=== PATIENT | male | born 1960 | race Caucasian/White ===

== ENCOUNTER 2025-01-29 19:32 | Emergency (ER) | payer MEDICARE ==
[2025-01-29 20:03] VITALS: RESP 18
--- NOTE | 2025-01-29 20:47 | XR ---
EXAMINATION TYPE: XR forearm RT DATE OF EXAM: 01/29/2025 8:41 PM COMPARISON: None. CLINICAL INDICATION: Male, 64 years old with history of previous fracture/cast removal, pain TECHNIQUE: XR forearm RT XX views were obtained. FINDINGS: Overlying cast material does obscure fine bony detail. 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 Callus formation is noted. No additional fractures certainty at this time. IMPRESSION: As above [facility], , 01/29/2025 8:44 PM
[2025-01-29] MEDS: PETROLATUM, WHITE OINT 50 GM TUBE TOPICAL PRN (23:02)
--- NOTE | 2025-01-29 23:20 | ED ---
Upper Extremity HPI - General Chief Complaint: Extremity Injury, Upper Stated Complaint: cast removal Time Seen by Provider: 01/29/25 21:00 Source: patient Mode of arrival: ambulatory Limitations: no limitations - History of Present Illness Initial Comments: 64-year-old male requesting that his right arm cast be removed. Patient just moved from [place]. He had his cast applied there and was told once he got to [place] he should have the cast removed at the beginning of December. He reports that things are a bit busier than he anticipated and he has not had a chance to have it removed yet. He does have an appointment with [facility] on [facility]. He is having swelling in his hand. No numbness or pallor. He still able to move all of his fingers with ease. - Related Data Allergies Allergy/AdvReac Type Severity Reaction Status Date / Time No Known Allergies Allergy Verified 01/29/25 19:58 Review of Systems ROS Statement: Those systems with pertinent positive or pertinent negative responses have been documented in the HPI. ROS Other: All systems not noted in ROS Statement are negative. Past Medical History Past Medical History: Atrial Fibrillation, Heart Failure, CVA/TIA, Diabetes Mellitus, Hypertension Past Surgical History: No Surgical Hx Reported Smoking Status: Never smoker Past Alcohol Use History: Occasional Past Drug Use History: None Reported General Exam Limitations: no limitations General appearance: alert, in no apparent distress Head exam: Present: atraumatic, normocephalic, normal inspection Eye exam: Present: normal appearance, EOMI Neck exam: Present: normal inspection. Absent: meningismus Respiratory exam: Absent: respiratory distress Right Forearm Wrist exam: Present: swelling. Absent: tenderness Vascular: Present: normal capillary refill. Absent: vascular compromise Neurological exam: Present: alert, oriented X3 Psychiatric exam: Present: normal affect, normal mood Skin exam: Present: warm, dry Course Vital Signs 01/29/25 19:59 Temperature 97.2 F L Pulse Rate 58 L Respiratory 18 Rate Blood Pressure 116/89 O2 Sat by Pulse 97 Oximetry Medical Decision Making - Medical Decision Making Was pt. sent in by a medical professional or institution (, PA, CINDER CRANE OPERATOR, urgent care, hospital, or [facility]...) When possible be specific @ -No Did you speak to anyone other than the patient for history (EMS, parent, family, police, friend...)? What history was obtained from this source @ -Spoke with the patient's sister on the phone Did you review nursing and triage notes (agree or disagree)? Why? @ -I reviewed and agree with nursing and triage notes Were old charts reviewed (outside hosp., previous admission, EMS record, old EKG, old radiological studies, urgent care reports/EKG's, [facility] records)? Report findings @ -No old charts were reviewed Differential Diagnosis (chest pain, altered mental status, abdominal pain women, abdominal pain men, vaginal bleeding, weakness, fever, dyspnea, syncope, headache, dizziness, GI bleed, back pain, seizure, CVA, palpatations, mental health, musculoskeletal)? @ -Differential includes encounter for cast removal, new fracture, infection, compartment syndrome, not an all-inclusive list EKG interpreted by me (3pts min.). @ -As above X-rays interpreted by me (1pt min.). @ -X-ray shows overlying cast material does obscure fine bony detail. 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 Callus formation is noted. No additional fractures seen at this time CT interpreted by me (1pt min.). @ -None done U/S interpreted by me (1pt. min.). @ -None done What testing was considered but not performed or refused? (CT, X-rays, U/S, labs)? Why? @ -None What meds were considered but not given or refused? Why? @ -None Did you discuss the management of the patient with other professionals (professionals i.e. , PA, CINDER CRANE OPERATOR, lab, RT, psych nurse, psych social worker, mfg assoc, teacher, nuclear officer, cyanide case hardener)? Give summary @ -No Was smoking cessation discussed for >3mins.? @ -No Was critical care preformed (if so, how long)? @ -No Were there social determinants of health that impacted care today? How? (Homelessness, low income, unemployed, alcoholism, drug addiction, transportation, low edu. Level, literacy, decrease access to med. care, longterm, rehab)? @ -No Was there de-escalation of care discussed even if they declined (Discuss DNR or withdrawal of care, Hospice)? DNR status @ -No What co-morbidities impacted this encounter? (DM, HTN, Smoking, COPD, CAD, Cancer, CVA, ARF, Chemo, Hep., AIDS, mental health diagnosis, sleep apnea, morbid obesity)? @ -None Was patient admitted / discharged? Hospital course, mention meds given and route, prescriptions, significant lab abnormalities, going to OR and other pertinent info. @ -64-year-old male requesting removal of his right arm cast. He had a distal humerus fracture back [place] He was told to have the cast removed when he got to [place] at the beginning of December. He states that he was busy with moving and has not had a chance to have it removed yet. He is having swelling of the hand. No pallor or numbness. Pulses are palpable and normal capillary refill. I spoke with the patient's sister via telephone who confirms that the patient was supposed to have his cast removed a few weeks ago. Cast is removed, patient is placed in Srinath wrap for his swelling. Provided with a sling. He has an appointment with orthopedics on Sunday. Follow-up with PCP. Report back to ER with any new or worsening symptoms. Discussed return parameters and answered all questions. Patient conveyed verbal understanding and agreed to the plan. I discussed this case in detail with my attending Dr. Bryant Undiagnosed new problem with uncertain prognosis? @ -No Drug Therapy requiring intensive monitoring for toxicity (Heparin, Nitro, Insulin, Cardizem)? @ -No Were any procedures done? @ -No Diagnosis/symptom? @ -Encounter for cast removal Acute, or Chronic, or Acute on Chronic? @ -Acute Uncomplicated (without systemic symptoms) or Complicated (systemic symptoms)? @ -Uncomplicated Side effects of treatment? @ -No Exacerbation, Progression, or Severe Exacerbation? @ -No Poses a threat to life or bodily function? How? (Chest pain, [place], [place], pneumonia, PE, COPD, DKA, ARF, appy, cholecystitis, CVA, Diverticulitis, Homicidal, Suicidal, threat to staff... and all critical care pts) @ -No Disposition Clinical Impression: Cast removal Disposition: HOME SELF-CARE Condition: Good Additional Instructions: Follow-up with orthopedics at your scheduled appointment. Report back to ER with any new or worsening symptoms. Wrap the arm and elevate the arm to help with swelling. Is patient prescribed a controlled substance at d/c from ED?: No Referrals: None,Stated [Primary Care Provider] - 1-2 days Time of Disposition: 23:20
[2025-01-29 23:23] VITALS: BP 117/79; PULSE 62; TEMP 97.6
== END 2025-01-29 23:45 | disposition home or self-care (01) ==
LOC: EC 19:32
DX: Z47.89 Encounter for other orthopedic aftercare (principal)
CPT/HCPCS: 99283

== ENCOUNTER 2025-03-09 14:09 | Inpatient (IN) | payer MEDICARE ==
[2025-03-09 15:24] LABS: Basophils % (A) 1.6 %; Eosinophils # (A) 0.79 10*3/uL (0.04-0.35); Eosinophils % (A) 12.4 %; HGB 10.4 g/dL (13.0-17.0); Lymphocytes # (A) 0.72 10*3/uL (0.90-5.00); Lymphocytes % (A) 11.3 %; MCH 25.8 pg (27.0-32.0); MCHC 31.5 g/dL (32.0-37.0); MCV 81.9 fL (80.0-97.0); Mean Platelet Volume 9.9 fL (9.5-12.2); Monocytes % (A) 12.6 %; Neutrophils # (A) 3.95 10*3/uL (1.80-7.70); Neutrophils % (A) 61.9 %; Platelet Count 305 10*3/uL (140-440); RBC 4.03 10*6/uL (4.40-5.60); RDW 20.2 % (11.5-14.5); WBC 6.37 10*3/uL (4.50-10.00)
[2025-03-09 15:38] LABS: Partial Thromboplastin Time 28.4 sec (22.0-30.0); Prothrombin Time 20.7 sec (10.0-12.5)
[2025-03-09 15:45] LABS: ALT 16 U/L (4-49); AST 27 U/L (17-59); African American GFR (CKD) 50 (>60 ml/min/1.73 sqM); Albumin 3.8 g/dL (3.5-5.0); Alkaline Phosphatase 68 U/L (38-126); Anion Gap 13 mmol/L; Blood Urea Nitrogen 65 mg/dL (9-20); Calcium 9.5 mg/dL (8.4-10.2); Carbon Dioxide 22 mmol/L (22-30); Chloride 104 mmol/L (98-107); Glucose 121 mg/dL (74-99); Magnesium 1.8 mg/dL (1.6-2.3); Non-African American GFR(CKD) 44 (>60 ml/min/1.73 sqM); Potassium 3.6 mmol/L (3.5-5.1); Sodium 139 mmol/L (137-145); Total Bilirubin 1.2 mg/dL (0.2-1.3); Total Protein 6.3 g/dL (6.3-8.2)
--- NOTE | 2025-03-09 15:49 | XR ---
EXAMINATION TYPE: XR chest 2V DATE OF EXAM: 03/09/2025 3:45 PM COMPARISON: None TECHNIQUE: XR chest 2V Frontal and lateral views of the chest. CLINICAL INDICATION:Male, 64 years old with history of difficulty breathing; FINDINGS: Lungs/Pleura: There is no evidence of pleural effusion, focal consolidation, or pneumothorax. Pulmonary vascularity: Mild pulmonary vascular congestion. Heart/mediastinum: Cardiomediastinal silhouette is enlarged. Musculoskeletal: Multiple level degenerative disc disease changes seen throughout the spine. IMPRESSION: Cardiomegaly and mild pulmonary vascular congestion. Correlate with BNP for congestive heart failure. [facility], , 03/09/2025 3:47 PM
[2025-03-09 15:53] LABS: NT-Pro-B-Type Natriuretic Pept 23900 pg/mL
[2025-03-09 16:32] LABS: Appearance,Urine Clear (Clear); Bilirubin,Urine Negative (Negative); Blood,Urine Negative (Negative); Color,Urine Colorless; Glucose,Urine (UA) Negative (Negative); Ketones,Urine Negative (Negative); Leukocyte Esterase,Urine Negative (Negative); Nitrite,Urine Negative (Negative); PH, Urine 7.5 (5.0-8.0); Protein,Urine Negative (Negative); Specific Gravity,Urine 1.008 (1.001-1.035); Urobilinogen,Urine <2.0 mg/dL (<2.0)
--- NOTE | 2025-03-09 17:14 | US ---
EXAMINATION TYPE: US scrotum with doppler. DATE OF EXAM: 03/09/2025 COMPARISON: NONE CLINICAL INDICATION: Male, 64 years old with history of scrotal edema; scrotal edema x 2 weeks TECHNIQUE: Grayscale, color Doppler and spectral Doppler imaging of the scrotum. FINDINGS: EXAM MEASUREMENTS: TESTICLES: Right Testicle: 4.4 x 2.8 x 2.9 cm Left Testicle: 4.4 x 2.9 x 3.0 cm EPIDIDYMIS HEAD: Right Epididymis: 0.6 cm Left Epididymis: 0.8 cm Doppler performed to assess for testicular vascularity; good bilateral color flow and spectral wavefo kanu are seen. There is no evidence of testicular torsion. Presence of hydroceles: yes bilaterally Presence of varicoceles: yes on left Bilateral scrotal edema noted IMPRESSION: 1. No suspicious changes to suggest torsion 2. Bilateral hydroceles are present 3. Scrotal edema present [facility], , 03/09/2025 5:12 PM
[2025-03-09 17:35] LABS: Glucose,Whole Blood 164 mg/dL (70-110)
[2025-03-09] MEDS ORDERED: ONDANSETRON 4 MG/2 ML VIAL IVP PRN (17:56)
[2025-03-09] MEDS ORDERED: NALOXONE 0.4 MG/ML 1 ML VIAL IV PRN (17:56)
--- NOTE | 2025-03-09 17:58 | ED ---
General Adult HPI - General Chief complaint: Urogenital Stated complaint: Urogenital Time Seen by Provider: 03/09/25 14:22 Source: patient, RN notes reviewed, old records reviewed Mode of arrival: ambulatory Limitations: no limitations - History of Present Illness Initial comments: 64-year-old male presents emergency department complaining of scrotal swelling. Has been present for the last 1 to 2 weeks. Over that period time is also noticed worsening lower extremity swelling as well as exertional shortness of breath. Denies any worsening orthopnea or PND. Denies any abdominal pain, nausea, vomiting, diarrhea. Has a history of CHF, A-fib on blood thinners as well as Lasix. Presents for further evaluation at this time. - Related Data Allergies Allergy/AdvReac Type Severity Reaction Status Date / Time No Known Allergies Allergy Verified 03/09/25 14:15 Review of Systems ROS Statement: Those systems with pertinent positive or pertinent negative responses have been documented in the HPI. Review of Systems: CONST: Denies fever EYES: Denies blurry vision ENT: Denies nasal congestion C/V: Denies Chest pain RESP: Endorses exertional shortness of breath GI: Denies abdominal pain : Endorses scrotal edema SKIN: Denies rash. MSK: Denies joint pain. NEURO: Denies headache ROS Other: All systems not noted in ROS Statement are negative. Past Medical History Past Medical History: Atrial Fibrillation, Heart Failure, CVA/TIA, Diabetes Mellitus, Hypertension Past Surgical History: No Surgical Hx Reported Smoking Status: Never smoker Past Alcohol Use History: Occasional Past Drug Use History: None Reported General Exam - General Exam Comments Initial Comments: General: Appears in no acute distress. HEAD: Normal with no signs of head trauma. EYES: PERRLA, EOMI, conjunctiva normal, no discharge. ENT: Hearing grossly intact, normal oropharynx. RESPIRATORY: Clear breath sounds bilaterally. No wheezes, rales, or rhonchi. C/V: Irregular rate and rhythm. S1 and S2 auscultated, bilateral lower extremity pitting edema, peripheral pulses 2+ and intact throughout ABD: Abd is soft, nontender, nondistended. Scrotal exam shows significant bilateral scrotal edema, left seems worse than right. EXT: Normal range of motion, no obvious deformity SKIN: No rashes or lesions observed on exposed skin. NEURO: Alert and oriented x 4. Limitations: no limitations Course Vital Signs 03/09/25 03/09/25 14:13 17:39 Temperature 97.4 F L 97.5 F L Pulse Rate 63 64 Respiratory 18 20 Rate Blood Pressure 117/74 109/61 O2 Sat by Pulse 96 94 L Oximetry Medical Decision Making - Medical Decision Making Was pt. sent in by a medical professional or institution (, ANABELL, CHIEF HUMAN RESOURCES OFFICER, urgent care, hospital, or [place] [facility]...) When possible be specific @ -No Did you speak to anyone other than the patient for history (EMS, parent, family, police, friend...)? What history was obtained from this source @ -No Did you review nursing and triage notes (agree or disagree)? Why? @ -I reviewed and agree with nursing and triage notes Were old charts reviewed (outside hosp., previous admission, EMS record, old EKG, old radiological studies, urgent care reports/EKG's, [place] [facility] records)? Report findings @ -No old charts were reviewed Differential Diagnosis (chest pain, altered mental status, abdominal pain women, abdominal pain men, vaginal bleeding, weakness, fever, dyspnea, syncope, headache, dizziness, GI bleed, back pain, seizure, CVA, palpatations, mental health, musculoskeletal)? @ -CHF, hydrocele, varicocele. This list is not all-inclusive. EKG interpreted by me (3pts min.). @ -As above X-rays interpreted by me (1pt min.). @ -Chest x-ray shows pulmonary vascular congestion CT interpreted by me (1pt min.). @ -None done U/S interpreted by me (1pt. min.). @ -Scrotal ultrasound reveals bilateral hydrocele as well as just general scrotal edema. No evidence of torsion. What testing was considered but not performed or refused? (CT, X-rays, U/S, labs)? Why? @ -None What meds were considered but not given or refused? Why? @ -None Did you discuss the management of the patient with other professionals (professionals i.e. ANABELL Ludwig, CHIEF HUMAN RESOURCES OFFICER, lab, RT, psych nurse, social media project manager, riprap placer, teacher, airfield services officer, lining caser)? Give summary @ -Discussed with the admitting team, TIMOTHY Harden of [facility] who accepted the admission Was smoking cessation discussed for >3mins.? @ -No Was critical care preformed (if so, how long)? @ -No Were there social determinants of health that impacted care today? How? (Homelessness, low income, unemployed, alcoholism, drug addiction, transportation, low edu. Level, literacy, decrease access to med. care, [facility], rehab)? @ -No Was there de-escalation of care discussed even if they declined (Discuss DNR or withdrawal of care, Hospice)? DNR status @ -No What co-morbidities impacted this encounter? (DM, HTN, Smoking, COPD, CAD, Cancer, CVA, ARF, Chemo, Hep., AIDS, mental health diagnosis, sleep apnea, morbid obesity)? @ -CHF Was patient admitted / discharged? Hospital course, mention meds given and route, prescriptions, significant lab abnormalities, going to OR and other pertinent info. @ -Based on patient's presentation physical exam, presents with lower extremity pitting edema, suspected bilateral hydroceles with worsening scrotal edema, as well as other clinical symptoms of CHF including exertional dyspnea. I suspect a CHF exacerbation. We will obtain workup. Patient was in agreement this plan. Vitals are within acceptable limits. He does have a history of A-fib and is on blood thinners. EKG shows no signs of acute ischemia. Chest x-ray shows pulmonary vascular congestion. Laboratory studies are remarkable for an elevated BUN and cr eatinine with a history of CKD. BNP is elevated to 23,000. Ultrasound of the scrotum reveals bilateral hydroceles as well as scrotal edema. I discussed results with patient. He will be admitted to the hospital for CHF exacerbation and placed on IV Lasix. He was in agreement this plan. Cardiology consulted. I spoke with the admitting provider, TIMOTHY Harden of [facility] who accepted the admission. Undiagnosed new problem with uncertain prognosis? @ -No Drug Therapy requiring intensive monitoring for toxicity (Heparin, Nitro, Insulin, Cardizem)? @ -No Were any procedures done? @ -No Diagnosis/symptom? @ -CHF exacerbation, bilateral hydroceles Acute, or Chronic, or Acute on Chronic? @ -Acute on chronic Uncomplicated (without systemic symptoms) or Complicated (systemic symptoms)? @ -Complicated Side effects of treatment? @ -No Exacerbation, Progression, or Severe Exacerbation? @ -Exacerbation Poses a threat to life or bodily function? How? (Chest pain, [place], [place], pneumonia, PE, COPD, DKA, ARF, appy, cholecystitis, CVA, Diverticulitis, Homicidal, Suicidal, threat to staff... and all critical care pts) @ -Potentially, yes - Lab Data Result diagrams: 03/09/25 15:21 03/09/25 15:21 Lab Results 03/09/25 03/09/25 03/09/25 Range/Units 15:21 15:21 15:21 WBC 6.37 (4.50-10.00) 10*3/uL RBC 4.03 L (4.40-5.60) 10*6/uL Hgb 10.4 L (13.0-17.0) g/dL Hct 33.0 L (39.6-50.0) % MCV 81.9 (80.0-97.0) fL MCH 25.8 L (27.0-32.0) pg MCHC 31.5 L (32.0-37.0) g/dL Plt Count 305 (140-440) 10*3/uL MPV 9.9 (9.5-12.2) fL Immature Gran % (Auto) 0.2 % Neutrophils % 61.9 % Lymphocytes % 11.3 % Monocytes % 12.6 % Eosinophils % 12.4 % Basophils % 1.6 % Immature Gran # 0.01 (0.00-0.04) 10*3/uL Neutrophils # 3.95 (1.80-7.70) 10*3/uL Lymphocytes # 0.72 L (0.90-5.00) 10*3/uL Monocytes # 0.80 (0.20-1.00) 10*3/uL Eosinophils # 0.79 H (0.04-0.35) 10*3/uL Basophils # 0.10 (0.00-0.10) 10*3/uL PT 20.7 H (10.0-12.5) sec INR 2.0 H (<1.2) APTT 28.4 (22.0-30.0) sec Sodium 139 (137-145) mmol/L Potassium 3.6 (3.5-5.1) mmol/L Chloride 104 (98-107) mmol/L Carbon Dioxide 22 (22-30) mmol/L Anion Gap 13 mmol/L BUN 65 H (9-20) mg/dL Creatinine 1.62 H (0.66-1.25) mg/dL Est GFR (CKD-EPI)AfAm 50 (>60 ml/min/1.73 sqM) Est GFR (CKD-EPI)NonAf 44 (>60 ml/min/1.73 sqM) Glucose 121 H (74-99) mg/dL POC Glucose (mg/dL) (70-110) mg/dL POC Glu Cafe Operator ID Calcium 9.5 (8.4-10.2) mg/dL Magnesium 1.8 (1.6-2.3) mg/dL Total Bilirubin 1.2 (0.2-1.3) mg/dL AST 27 (17-59) U/L ALT 16 (4-49) U/L Alkaline Phosphatase 68 (38-126) U/L NT-Pro-B Natriuret Pep 44804 pg/mL Total Protein 6.3 (6.3-8.2) g/dL Albumin 3.8 (3.5-5.0) g/dL Urine Color Urine Appearance (Clear) Urine pH (5.0-8.0) Ur Specific [place] (1.001-1.035) Urine Protein (Negative) Urine Glucose (UA) (Negative) Urine Ketones (Negative) Urine Blood (Negative) Urine Nitrite (Negative) Urine Bilirubin (Negative) Urine Urobilinogen (<2.0) mg/dL Ur Leukocyte Esterase (Negative) 03/09/25 03/09/25 Range/Units 16:20 17:34 WBC (4.50-10.00) 10*3/uL RBC (4.40-5.60) 10*6/uL Hgb (13.0-17.0) g/dL Hct (39.6-50.0) % MCV (80.0-97.0) fL MCH (27.0-32.0) pg MCHC (32.0-37.0) g/dL Plt Count (140-440) 10*3/uL MPV (9.5-12.2) fL Immature Gran % (Auto) % Neutrophils % % Lymphocytes % % Monocytes % % Eosinophils % % Basophils % % Immature Gran # (0.00-0.04) 10*3/uL Neutrophils # (1.80-7.70) 10*3/uL Lymphocytes # (0.90-5.00) 10*3/uL Monocytes # (0.20-1.00) 10*3/uL Eosinophils # (0.04-0.35) 10*3/uL Basophils # (0.00-0.10) 10*3/uL PT (10.0-12.5) sec INR (<1.2) APTT (22.0-30.0) sec Sodium (137-145) mmol/L Potassium (3.5-5.1) mmol/L Chloride (98-107) mmol/L Carbon Dioxide (22-30) mmol/L Anion Gap mmol/L BUN (9-20) mg/dL Creatinine (0.66-1.25) mg/dL Est GFR (CKD-EPI)AfAm (>60 ml/min/1.73 sqM) Est GFR (CKD-EPI)NonAf (>60 ml/min/1.73 sqM) Glucose (74-99) mg/dL POC Glucose (mg/dL) 164 H (70-110) mg/dL POC Glu Cafe Operator ID Lena Llye Calcium (8.4-10.2) mg/dL Magnesium (1.6-2.3) mg/dL Total Bilirubin (0.2-1.3) mg/dL AST (17-59) U/L ALT (4-49) U/L Alkaline Phosphatase (38-126) U/L NT-Pro-B Natriuret Pep pg/mL Total Protein (6.3-8.2) g/dL Albumin (3.5-5.0) g/dL Urine Color Colorless Urine Appearance Clear (Clear) Urine pH 7.5 (5.0-8.0) Ur Specific [place] 1.008 (1.001-1.035) Urine Protein Negative (Negative) Urine Glucose (UA) Negative (Negative) Urine Ketones Negative (Negative) Urine Blood Negative (Negative) Urine Nitrite Negative (Negative) Urine Bilirubin Negative (Negative) Urine Urobilinogen <2.0 (<2.0) mg/dL Ur Leukocyte Esterase Negative (Negative) - EKG Data -: EKG Interpreted by Me EKG Comments: 12-lead Electrocardiogram Interpretation Note EKG was reviewed and interpreted by myself. 12-lead ECG performed at 1453 is interpreted by me as revealing atrial fibrillation at a rate of 63 beats per minute. [place] is normal. QRS duration is 120 ms, QTc is 509 ms.. There were no ST or T wave abnormalities to suggest myocardial ischemia or injury. R wave progression across the precordium was slightly delayed. By my interpretation this EKG is non-diagnostic for acute ischemia. Disposition Clinical Impression: CHF (congestive heart failure), Hydrocele Disposition: ADMITTED IP TO THIS HOSP Condition: Stable Time of Disposition: 17:57
[2025-03-09] MEDS: FUROSEMIDE 10 MG/ML 4 ML VIAL IV STA (18:10)
[2025-03-10 00:13] LABS: Glucose,Whole Blood 204 mg/dL (70-110)
[2025-03-10 06:05] LABS: Glucose,Whole Blood 204 mg/dL (70-110)
[2025-03-10 08:48] LABS: Basophils # (A) 0.09 X 10*3/uL (0.00-0.10); Basophils % (A) 1.4 %; Eosinophils # (A) 0.61 X 10*3/uL (0.04-0.35); Eosinophils % (A) 9.5 %; HCT 33.4 % (39.6-50.0); HGB 10.1 g/dL (13.0-17.0); Lymphocytes % (A) 9.4 %; MCH 25.6 pg (27.0-32.0); MCHC 30.2 g/dL (32.0-37.0); MCV 84.6 FL (80.0-97.0); Mean Platelet Volume 10.5 FL (9.5-12.2); Monocytes # (A) 0.86 X 10*3/uL (0.20-1.00); Monocytes % (A) 13.4 %; NRBC Per 100 WBC 0 X 10*3/uL (0.00-0.01); Neutrophils # (A) 4.22 X 10*3/uL (1.80-7.70); Platelet Count 309 X 10*3/uL (140-440); RBC 3.95 X 10*6/uL (4.40-5.60); RDW 20.5 % (11.5-14.5)
[2025-03-10] MEDS ORDERED: FENOFIBRATE 160 MG TAB PO SCH (09:00)
[2025-03-10] MEDS ORDERED: amLODIPine 10 MG TAB PO SCH (09:00)
[2025-03-10] MEDS ORDERED: DAPAGLIFLOZIN PROPANEDIOL 5 MG TABLET PO SCH (09:00)
[2025-03-10] MEDS: ATORVASTATIN 80 MG TAB PO SCH (09:19)
[2025-03-10] MEDS: FERROUS SULFATE 325 MG TAB PO SCH (09:19)
[2025-03-10] MEDS: FUROSEMIDE 10 MG/ML 4 ML VIAL IV SCH (09:19)
[2025-03-10] MEDS: LOSARTAN 50 MG TAB PO SCH (09:19)
[2025-03-10] MEDS: DAPAGLIFLOZIN PROPANEDIOL 10 MG TABLET PO SCH (09:20)
[2025-03-10] MEDS: CENEGERMIN BKBJ RIGHT EYE SCH (09:21)
[2025-03-10] MEDS: RIVAROXABAN 20 MG TAB PO SCH ×2 (10:02→10:48)
[2025-03-10 10:32] LABS: ALT 15 U/L (10-49); AST 26 U/L (14-35); Albumin 3.6 g/dL (3.8-4.9); Albumin/Globulin Ratio 1.71 Ratio (1.60-3.17); Alkaline Phosphatase 62 U/L (41-126); BUN/Creat Ratio 38.73 Ratio (12.00-20.00); Blood Urea Nitrogen 58.1 mg/dL (9.0-27.0); Calcium 9.1 mg/dL (8.7-10.3); Carbon Dioxide 19.9 mmol/L (21.6-31.8); Chloride 103 mmol/L (96-109); Globulin 2.1 g/dL (1.6-3.3); Glucose 216 mg/dL (70-110); Potassium 3.8 mmol/L (3.5-5.5); Sodium 139 mmol/L (135-145); Total Protein 5.7 g/dL (6.2-8.2)
[2025-03-10] MEDS ORDERED: DEXTROSE 50% SYRINGE 50 ML IVP PRN ×2 (10:32)
[2025-03-10] MEDS ORDERED: NON FORMULARY DRUG (Dextroamphetamine/Amphetamine [Adderall] 10 MG Tablet) PO SCH (11:00)
[2025-03-10] MEDS ORDERED: rOPINIRole HCL 4 MG TABLET PO SCH (11:00)
--- NOTE | 2025-03-10 11:50 | CA ---
Transthoracic Echo Report Name: Tom Reed Age: 64 Gender: M : 1960 Exam Date: 03/10/2025 08:28 Exam Location: [facility] Ht (in): 67 Wt (lb): 245 Ordering Physician: Annette Marcelo Attending/Referring Phys: [id number], [employer] Brannon Pierce, SETH Procedure CPT: Indications: LVF, chf Cardiac Hx: A-fib, CVA/TIA, HTN Technical Quality: Fair Contrast 1: Definity Total Dose (mL): 2 Contrast 2: Total Dose (mL): MEASUREMENTS (Male / Female) Normal Values 2D ECHO LV Diastolic Diameter PLAX 5.2 cm 4.2 - 5.9 / 3.9 - 5.3 cm LV Systolic Diameter PLAX 3.3 cm IVS Diastolic Thickness 1.3 cm 0.6 - 1.0 / 0.6 - 0.9 cm LVPW Diastolic Thickness 1.3 cm 0.6 - 1.0 / 0.6 - 0.9 cm LV Relative Wall Thickness 0.5 RV Internal Dim ED PLAX 4.3 cm LVOT Diameter 1.8 cm LA Systolic Diameter LX 4.3 cm 3.0 - 4.0 / 2.7 - 3.8 cm LA Volume 121.9 cm??? 18 - 58 / 22 - 52 cm??? LA Volume Index 52.1 cm???/m??? 16 - 28 cm???/m??? DOPPLER AV Peak Velocity 415.1 cm/s AV Peak Gradient 68.9 mmHg AV Mean Velocity 322.8 cm/s AV Mean Gradient 46.2 mmHg AV Velocity Time Integral 99.0 cm AI Peak Velocity 214.7 cm/s AI Peak Gradient 18.4 mmHg AI Pressure Half Time 396.4 ms MV Peak Velocity 123.8 cm/s MV Peak Gradient 6.1 mmHg MV Mean Velocity 59.9 cm/s MV Mean Gradient 1.7 mmHg MV Velocity Time Integral 28.7 cm MV Area PHT 4.1 cm??? Mitral E Point Velocity 110.0 cm/s Mitral A Point Velocity 35.3 cm/s Mitral E to A Ratio 3.1 MV Deceleration Time 184.2 ms TR Peak Velocity 269.6 cm/s TR Peak Gradient 29.1 mmHg Right Atrial Pressure 20.0 mmHg Pulmonary Artery Systolic Pressu 49.1 mmHg Right Ventricular Systolic Press 49.1 mmHg FINDINGS Left Ventricle Left ventricular ejection fraction is estimated at 45-50 %. Mild concentric left ventricular hypertrophy. Hypokinetic inferoseptal wall. Right Ventricle Right ventricular dilatation. Moderate pulmonary hypertension. Right ventricular systolic pressure estimated at 49 mm hg. Right Atrium Severe right atrial dilatation. Left Atrium Mildly increased left atrial diameter. Severely increased left atrial volume. Moderately increased left atrial area. Mitral Valve Mitral valve thickened. No mitral stenosis. Mild to moderate mitral regurgitation. Aortic Valve Diffuse thickening of the aortic valve cusps with reduced excursion. Moderate aortic regurgitation. Severe aortic stenosis with a peak velocity of 4 m/s, peak gradient 78 mmHg, mean gradient 50 mmHg, cannot exclude bicuspid aortic valve Tricuspid Valve Structurally normal tricuspid valve. No tricuspid stenosis. Mild tricuspid regurgitation. Pulmonic Valve Structurally normal pulmonic valve. No pulmonic stenosis. Mild pulmonic regurgitation. Pericardium Small pericardial effusion. Aorta Normal size aortic root and proximal ascending aorta. CONCLUSIONS 1. Mildly impaired left ventricular systolic function with concentric LVH 2. Severe aortic stenosis with moderate aortic regurgitation and possible bicuspid aortic valve 3. Mild to moderate mitral regurgitation 4. Mild tricuspid regurgitation with moderate pulmonary hypertension Previewed by: Dr. Ramya Richardson MD (Electronically Signed) Final Date: 10 March 2025 11:49
--- NOTE | 2025-03-10 12:06 | P.CRDCN ---
History of Present Illness Consult date: 03/10/25 Consult reason: congestive heart failure History of present illness: This is a 64-year-old male patient of Dr. Lopez with past medical history of diabetes, hypertension, dyslipidemia, permanent atrial fibrillation, history of stroke. We have been asked to evaluate the patient for CHF. Patient states that he came into the hospital because he had swelling in the groin region. He states it has been going on for couple weeks but significantly worsening over the past week. He denies shortness of breath no chest pain chest pressure. He states he sometimes feels dizzy ever since he had a stroke and mostly related to unsteady gait. He denies palpitations. No syncopal episodes. Patient recently moved from [place]. He states since he has moved he has had weight gain. He states he is a non-smoker. No alcohol use. No caffeine use. He is a [id number] score no added salt to diet. He has been started on IV Lasix 40 mg every 12 hours. Blood pressure 123/59, heart rate 78, pulse ox 91% on 2 L nasal cannula. -EKG: Atrial fibrillation 63 bpm -Chest x-ray: Cardiomegaly and mild pulmonary vascular congestion. -Scrotal ultrasound: No torsion. Bilateral hydroceles. Scrotal edema present. -Laboratory studies: WBC 6.4, hemoglobin 10.1. BUN 58 creatinine 1.5 down from 1.62. proBNP 23,900. Urinalysis negative. -Home cardiac medications: Amlodipine 10 mg daily, atorvastatin 80 mg daily, Farxiga 5 mg daily, fenofibrate 160 mg daily, ferrous sulfate daily, Lasix 20 mg daily, losartan 100 mg daily, Xarelto 20 mg daily. -Echocardiogram reveals mildly impaired left ventricular systolic function with concentric LVH. EF 45 to 50%. Severe aortic stenosis with moderate aortic regurgitation and possible bicuspid aortic valve. Mild to moderate mitral regurgitation. Mild tricuspid regurgitation with moderate pulmonary hy pertension. Review Of Systems: At the time of my exam: CONSTITUTIONAL: Denies fever or chills. HEENT: Denies blurred vision, vision changes, or eye pain. Denies hemoptysis CARDIOVASCULAR: Denies chest pain. Denies orthopnea. Denies PND. Denies palpitations. Reports edema RESPIRATORY: Denies shortness of breath. GASTROINTESTINAL: Denies abdominal pain. Denies nausea or vomiting. HEMATOLOGIC: Denies bleeding disorders. GENITOURINARY: Denies any blood in urine. SKIN: Denies puritis. Denies rash. Physical examination: Gen: This is 64-year-old male patient in no acute distress VS: reviewed HEENT: Head is atraumatic, normocephalic. Pupils equal, round. Sclerae is anicteric. NECK: Supple. No JVD. LUNGS: Clear to auscultation. No wheezes or rhonchi. No intercostal retractions. HEART: Regular rate and rhythm. No murmur. ABDOMEN: Soft No tenderness.+ Scrotal edema EXTREMITIES: Bilateral lower extremity edema. No calf tenderness. NEUROLOGICAL: Patient is awake, alert and oriented x3. Assessment: Presented with scrotal edema Acute on chronic systolic heart failure Diabetes mellitus type 2 Hypertension Dyslipidemia Permanent atrial fibrillation History of stroke Severe aortic stenosis with moderate aortic regurgitation and possible bicuspid aortic valve Mild to moderate mitral regurgitation. Moderate pulmonary hypertension Chronic kidney disease Plan: Resume patient's home cardiac medications with the following changes: Discontinue fibrate due to renal failure Increase Farxiga to 10 mg daily Discontinue amlodipine now and at discharge Continue IV Lasix 40 mg every 12 hours Monitor MADDI, daily weights, electrolytes and renal function BNP in the morning Monitor heart rate and may consider adding beta-tylor if heart rate is adequate Echocardiogram scheduled in the office has been canceled Further recommendations to follow based upon clinical course Thank you kindly for this consultation. Nurse practitioner note has been reviewed, I agree with documented findings and plan of care. Patient was seen and examined. Past Medical History Past Medical History: Atrial Fibrillation, Heart Failure, CVA/TIA, Diabetes Mellitus, Hypertension History of Any Multi-Drug Resistant Organisms: None Reported Past Surgical History: No Surgical Hx Reported Smoking Status: Never smoker Past Alcohol Use History: Occasional Past Drug Use History: None Reported Medications and Allergies Home Medications Medication Instructions Recorded Confirmed Type Atorvastatin [Lipitor] 80 mg PO DAILY 03/09/25 03/10/25 History Cenegermin-Bkbj [Oxervate] 1 drop RIGHT EYE DIRECTED 03/09/25 03/09/25 History Dapagliflozin Propanediol [Farxiga] 5 mg PO DAILY 03/09/25 03/09/25 History Dextroamphetamine/Amphetamine 10 mg PO DAILY 03/09/25 03/09/25 History [Adderall] FLUoxetine HCL [PROzac] 20 mg PO DAILY 03/09/25 03/09/25 History Fenofibrate [Lofibra] 160 mg PO DAILY 03/09/25 03/09/25 History Ferrous Sulfate [Feosol] 325 mg PO DAILY 03/09/25 03/09/25 History Furosemide [Lasix] 20 mg PO DAILY 03/09/25 03/09/25 History Insulin Aspart (For Pump) [NovoLOG 0.01 unit SQ-PUMP CONTINUOUS 03/09/25 03/09/25 History (For Pump)] Losartan Potassium 100 mg PO DAILY 03/09/25 03/10/25 History Rivaroxaban [Xarelto] 20 mg PO DAILY 03/09/25 03/10/25 History amLODIPine [Norvasc] 10 mg PO DAILY 03/09/25 03/09/25 History rOPINIRole HCL [Requip] 12 mg PO DIRECTED 03/09/25 03/09/25 History Allergies Allergy/AdvReac Type Severity Reaction Status Date / Time lisinopril AdvReac Cough Verified 03/09/25 20:34 Physical Exam Vitals: Vital Signs Temp Pulse Pulse Resp BP BP Pulse Ox 03/10/25 00:01 97.5 F L 72 18 122/72 91 L 03/09/25 23:23 97.5 F L 76 19 131/82 96 03/09/25 17:39 97.5 F L 64 20 109/61 94 L 03/09/25 14:13 97.4 F L 63 18 117/74 96 Intake and Output 03/09/25 03/10/25 03/10/25 22:59 06:59 14:59 Intake Total 600 Output Total 900 Balance -300 Intake: Oral 600 Output: Urine 900 Other: Voiding Method Toilet Toilet Urinal Urinal # Voids 3 Weight 106.594 kg 111.5 kg Results 03/10/25 05:38 03/10/25 05:38 Cardiac Enzymes 03/09/25 Range/Units 15:21 AST 27 (17-59) U/L Coagulation 03/09/25 Range/Units 15:21 PT 20.7 H (10.0-12.5) sec APTT 28.4 (22.0-30.0) sec CBC 03/09/25 Range/Units 15:21 WBC 6.37 (4.50-10.00) 10*3/uL RBC 4.03 L (4.40-5.60) 10*6/uL Hgb 10.4 L (13.0-17.0) g/dL Hct 33.0 L (39.6-50.0) % Plt Count 305 (140-440) 10*3/uL Comprehensive Metabolic Panel 03/09/25 Range/Units 15:21 Sodium 139 (137-145) mmol/L Potassium 3.6 (3.5-5.1) mmol/L Chloride 104 (98-107) mmol/L Carbon Dioxide 22 (22-30) mmol/L BUN 65 H (9-20) mg/dL Creatinine 1.62 H (0.66-1.25) mg/dL Glucose 121 H (74-99) mg/dL Calcium 9.5 (8.4-10.2) mg/dL AST 27 (17-59) U/L ALT 16 (4-49) U/L Alkaline Phosphatase 68 (38-126) U/L Total Protein 6.3 (6.3-8.2) g/dL Albumin 3.8 (3.5-5.0) g/dL Current Medications Generic Name Dose Route Start Last Admin Trade Name Freq PRN Reason Stop Dose Admin Furosemide 40 mg 03/10/25 09:00 Furosemide 10 Mg/Ml 4 Ml Vial IV Q12HR STEVIE Naloxone HCl 0.2 mg 03/09/25 17:56 Naloxone 0.4 Mg/Ml 1 Ml Vial IV Q2M PRN Opioid Reversal Ondansetron HCl 4 mg 03/09/25 17:56 Ondansetron 4 Mg/2 Ml Vial IVP Q8HR PRN Nausea And Vomiting Intake and Output 03/09/25 03/10/25 03/10/25 22:59 06:59 14:59 Intake Total 600 Output Total 900 Balance -300 Intake: Oral 600 Output: Urine 900 Other: Voiding Method Toilet Toilet Urinal Urinal # Voids 3 Weight 106.594 kg 111.5 kg 03/09/25 15:21 03/09/25 15:21
[2025-03-10 12:19] LABS: Glucose,Whole Blood 299 mg/dL (70-110)
[2025-03-10] MEDS: INSULIN LISPRO (HumaLOG) 100 UNIT/ML 10 mL VL SQ SCH (12:58)
[2025-03-10] MEDS: ceFAZolin 2 GM in DEXTROSE 5% IN WATER 50 ML IVPB SCH (12:58)
[2025-03-10] MEDS: FLUCONAZOLE 100 MG TAB PO ONE (12:59)
[2025-03-10] MEDS: NYSTATIN 100,000 UNIT/GM POWD 15 GM TOPICAL SCH (12:59)
[2025-03-10] MEDS: FLUoxetine HCL 20 MG CAP PO SCH (12:59)
--- NOTE | 2025-03-10 15:41 | HP ---
HISTORY AND PHYSICAL CHIEF COMPLAINTS: Scrotal swelling and weakness. HISTORY OF PRESENT ILLNESS: This 64-year-old gentleman with a past medical history of multiple medical problems, atrial fibrillation, history of CHF, diabetes mellitus type 2, complaining of scrotal swelling and redness and some weakness. The patient also has some shortness of breath. The patient came to [facility] and being admitted for further evaluation and treatment. White count is normal at this time. There is no history of fever, rigors, or chills. The chest x-ray, which I reviewed personally showed some haziness and mild congestion. A scrotal ultrasound showed bilateral scrotal edema and bilateral hydroceles. PAST MEDICAL HISTORY: History of atrial fibrillation, CHF. Rest of the history and chart is also reviewed. HOME MEDICATIONS: Reviewed include Lipitor. Dose and rest of medications reviewed. ALLERGIES: Lisinopril. FAMILY HISTORY: No history of heart disease or strokes in the family. SOCIAL HISTORY: Occasional smoking. REVIEW OF SYSTEMS: A 14-point review of systems negative except as mentioned earlier. PHYSICAL EXAMINATION: VITAL SIGNS: Pulse is 78, blood pressure 122/59, and respirations 16. HEENT: Conjunctivae normal. NECK: No jugular venous distention. CARDIOVASCULAR: S1, S2. RESPIRATION: Breath sounds diminished at the bases. Some diffuse scattered rhonchi. ABDOMEN: Soft and obese. Significant scrotal cellulitis, hydrocele, erythema, cellulitis, and candidal intertrigo present. LEGS: Minimal edema. NERVOUS SYSTEM: Nonfocal. LABORATORY DATA: Reviewed. ASSESSMENT: 1. Bilateral scrotal edema and also severe scrotal cellulitis. 2. Congestive heart failure, acute exacerbation. 3. History of atrial fibrillation. 4. Diabetes mellitus, type 2. 5. Hypertension. 6. Multiple complex medical issues. RECOMMENDATIONS AND DISCUSSION: This 64-year-old gentleman who was admitted with multiple medical problems. At this time, I recommend to continue with intravenous Lasix. Empiric antibiotics. Infectious Disease and Cardiology consultations. I would also recommend a 2D echo with Doppler if this is not done during the past 6 months. Resume the home medications once they are confirmed. Prognosis guarded, because of multiple complex medical issues and further recommendations to follow. See orders for details. MMODL / IJN: [id number] /
[2025-03-10 17:32] LABS: Glucose,Whole Blood 275 mg/dL (70-110)
[2025-03-10] MEDS: Insulin Aspart (For Pump) 100 UNIT/ML VIAL SQ-PUMP SCH (19:28)
[2025-03-10 20:36] LABS: Glucose,Whole Blood 300 mg/dL (70-110)
[2025-03-10] MEDS: ZINC OXIDE PASTE (Z-GUARD) 1 APPLIC TOPICAL PRN (21:05)
--- NOTE | 2025-03-10 22:15 | P.CONS ---
History of Present Illness - Reason for Consult Consult date: 03/10/25 Scrotal cellulitis Requesting physician: Rafaela Peterson - Chief Complaint Scrotal swelling and pain x 2 weeks - History of Present Illness Patient is a 64-year-old male with a past medical history significant for diabetes mellitus hypertension CVA TIA atrial fibrillation heart failure presenting to the hospital for evaluation of increasing scrotal swelling as well as lower extremity swelling that has been getting worse over the last 1 to 2 weeks patient been complaining of discomfort to the scrotal area mostly dull aching moderate intensity without radiation with significant swelling minimal redness that he did have difficulty voiding but denies having any burning of urine or any difficulty urination patient denies high-grade fever on presentation to the hospital patient was afebrile and no fever have been recorded subsequently patient was not tachycardic or hypotensive mildly hypoxic currently on 2 L nasal cannula oxygen did have a white count of 6.37 creatinine is 1.5 electrolytes are normal liver enzymes normal urine is negative patient did have a scrotal ultrasound bilateral scrotal edema noted no suspicious change to suggest torsion bilateral hydroceles present did have a chest x-ray cardiomegaly mild pulmonary vascular congestion patient was started on cefazolin infectious was consulted concerning for scrotal cellulitis Review of Systems Positive point and negatives has been mentioned in the HPI, complete review of systems was performed and all other systems are negative Past Medical History Past Medical History: Atrial Fibrillation, Heart Failure, CVA/TIA, Diabetes Mellitus, Hypertension History of Any Multi-Drug Resistant Organisms: None Reported Past Surgical History: No Surgical Hx Reported Smoking Status: Never smoker Past Alcohol Use History: Occasional Past Drug Use History: None Reported Medications and Allergies Home Medications Medication Instructions Recorded Confirmed Type Atorvastatin [Lipitor] 80 mg PO DAILY 03/09/25 03/10/25 History Cenegermin-Bkbj [Oxervate] 1 drop RIGHT EYE DIRECTED 03/09/25 03/09/25 History Dapagliflozin Propanediol [Farxiga] 5 mg PO DAILY 03/09/25 03/09/25 History Dextroamphetamine/Amphetamine 10 mg PO DAILY 03/09/25 03/09/25 History [Adderall] FLUoxetine HCL [PROzac] 20 mg PO DAILY 03/09/25 03/09/25 History Fenofibrate [Lofibra] 160 mg PO DAILY 03/09/25 03/09/25 History Ferrous Sulfate [Feosol] 325 mg PO DAILY 03/09/25 03/09/25 History Furosemide [Lasix] 20 mg PO DAILY 03/09/25 03/09/25 History Insulin Aspart (For Pump) [NovoLOG 0.01 unit SQ-PUMP CONTINUOUS 03/09/25 03/09/25 History (For Pump)] Losartan Potassium 100 mg PO DAILY 03/09/25 03/10/25 History Rivaroxaban [Xarelto] 20 mg PO DAILY 03/09/25 03/10/25 History amLODIPine [Norvasc] 10 mg PO DAILY 03/09/25 03/09/25 History rOPINIRole HCL [Requip] 12 mg PO DIRECTED 03/09/25 03/09/25 History Allergies Allergy/AdvReac Type Severity Reaction Status Date / Time lisinopril AdvReac Cough Verified 03/09/25 20:34 Physical Exam Vitals: Vital Signs Temp Pulse Pulse Resp BP BP Pulse Ox 03/10/25 07:30 97.4 F L 78 16 123/59 91 L 03/10/25 00:01 97.5 F L 72 18 122/72 91 L 03/09/25 23:23 97.5 F L 76 19 131/82 96 03/09/25 17:39 97.5 F L 64 20 109/61 94 L 03/09/25 14:13 97.4 F L 63 18 117/74 96 Intake and Output 03/09/25 03/10/25 03/10/25 22:59 06:59 14:59 Intake Total 600 240 Output Total 900 Balance -300 240 Intake: Oral 600 240 Output: Urine 900 Other: Voiding Method Toilet Toilet Urinal Urinal # Voids 3 Weight 106.594 kg 111.5 kg GENERAL DESCRIPTION: Elderly male up in bed, no distress. No tachypnea or accessory muscle of respiration use. HEENT: Shows Pallor , no scleral icterus. Oral mucous membrane is dry. NECK: Trachea central, no thyromegaly. LUNGS: Unlabored breathing. Decreased breath sounds at base HEART: S1, S2, regular rate and rhythm. No loud murmur ABDOMEN: Soft, no tenderness , guarding or rigidity, no organomegaly EXTREMITIES: 2+ edema of feet. SKIN: Significant swelling of the scrotal area which is diffuse minimal erythema no folliculitis or pustules were noticed or drainage NEUROLOGICAL: The patient is awake, alert, oriented x3, mood and affect normal. Results CBC & Chem 7: 03/10/25 05:38 03/10/25 05:38 Labs: Abnormal Lab Results - Last 24 Hours (Table) 03/09/25 03/09/25 03/09/25 Range/Units 15:21 15:21 15:21 RBC 4.03 L (4.40-5.60) 10*6/uL Hgb 10.4 L (13.0-17.0) g/dL Hct 33.0 L (39.6-50.0) % MCH 25.8 L (27.0-32.0) pg MCHC 31.5 L (32.0-37.0) g/dL RDW (11.5-14.5) % Lymphocytes # 0.72 L (0.90-5.00) 10*3/uL Eosinophils # 0.79 H (0.04-0.35) 10*3/uL PT 20.7 H (10.0-12.5) sec INR 2.0 H (<1.2) Carbon Dioxide (21.6-31.8) mmol/L Anion Gap (4.00-12.00) mmol/L BUN 65 H (9-20) mg/dL Creatinine 1.62 H (0.66-1.25) mg/dL Est GFR (CKD-EPI) (>=60) BUN/Creatinine Ratio (12.00-20.00) Ratio Glucose 121 H (74-99) mg/dL POC Glucose (mg/dL) (70-110) mg/dL Total Protein (6.2-8.2) g/dL Albumin (3.8-4.9) g/dL 03/09/25 03/10/25 03/10/25 Range/Units 17:34 00:11 05:38 RBC 3.95 L (4.40-5.60) 10*6/uL Hgb 10.1 L (13.0-17.0) g/dL Hct 33.4 L (39.6-50.0) % MCH 25.6 L (27.0-32.0) pg MCHC 30.2 L (32.0-37.0) g/dL RDW 20.5 H (11.5-14.5) % Lymphocytes # 0.60 L (0.90-5.00) 10*3/uL Eosinophils # 0.61 H (0.04-0.35) 10*3/uL PT (10.0-12.5) sec INR (<1.2) Carbon Dioxide (21.6-31.8) mmol/L Anion Gap (4.00-12.00) mmol/L BUN (9-20) mg/dL Creatinine (0.66-1.25) mg/dL Est GFR (CKD-EPI) (>=60) BUN/Creatinine Ratio (12.00-20.00) Ratio Glucose (74-99) mg/dL POC Glucose (mg/dL) 164 H 204 H (70-110) mg/dL Total Protein (6.2-8.2) g/dL Albumin (3.8-4.9) g/dL 03/10/25 03/10/25 Range/Units 05:38 06:03 RBC (4.40-5.60) 10*6/uL Hgb (13.0-17.0) g/dL Hct (39.6-50.0) % MCH (27.0-32.0) pg MCHC (32.0-37.0) g/dL RDW (11.5-14.5) % Lymphocytes # (0.90-5.00) 10*3/uL Eosinophils # (0.04-0.35) 10*3/uL PT (10.0-12.5) sec INR (<1.2) Carbon Dioxide 19.9 L (21.6-31.8) mmol/L Anion Gap 16.10 H (4.00-12.00) mmol/L BUN 58.1 H (9-20) mg/dL Creatinine (0.66-1.25) mg/dL Est GFR (CKD-EPI) 51 L (>=60) BUN/Creatinine Ratio 38.73 H (12.00-20.00) Ratio Glucose 216 H (74-99) mg/dL POC Glucose (mg/dL) 204 H (70-110) mg/dL Total Protein 5.7 L (6.2-8.2) g/dL Albumin 3.6 L (3.8-4.9) g/dL Assessment and Plan (1) Scrotal edema Current Visit: Yes Status: Acute Code(s): N50.89 - OTHER SPECIFIED DISORDERS OF THE MALE GENITAL ORGANS SNOMED Code(s): 86809358 (2) Cellulitis of scrotum Current Visit: Yes Status: Acute Code(s): N49.2 - INFLAMMATORY DISORDERS OF SCROTUM SNOMED Code(s): 33283961 Plan: 1patient presented hospital with significant swelling to his scrotal area for the last 2 weeks is more likely related to fluid overload underlying congestive heart failure as the patient also have significant swelling to bilateral lower extremity there is mild erythema on the leg cellulitis less likely but not entirely excluded as the patient not running any fever or any elevated white count 2-patient to continue aggressive diuresis along with empiric cefazolin and see clinical response We will follow on clinical condition and cultures to further adjust medication if needed Thank you for this consultation we will follow the patient along with you Dictation was produced using [employer] dictation software. please excuse any gr ammatical, word or spelling errors. Time with Patient: Greater than 30
[2025-03-11 06:20] LABS: Glucose,Whole Blood 227 mg/dL (70-110)
[2025-03-11] MEDS: FLUCONAZOLE 100 MG TAB PO SCH (08:25)
[2025-03-11 10:28] LABS: Basophils # (A) 0.07 X 10*3/uL (0.00-0.10); Eosinophils # (A) 0.43 X 10*3/uL (0.04-0.35); Eosinophils % (A) 6.4 %; HCT 31.1 % (39.6-50.0); HGB 9.4 g/dL (13.0-17.0); Lymphocytes # (A) 0.67 X 10*3/uL (0.90-5.00); MCHC 30.2 g/dL (32.0-37.0); MCV 82.7 FL (80.0-97.0); Mean Platelet Volume 10.1 FL (9.5-12.2); Monocytes # (A) 0.88 X 10*3/uL (0.20-1.00); Monocytes % (A) 13.1 %; NRBC Per 100 WBC 0 X 10*3/uL (0.00-0.01); Neutrophils # (A) 4.66 X 10*3/uL (1.80-7.70); Neutrophils % (A) 69.2 %; Platelet Count 276 X 10*3/uL (140-440); RBC 3.76 X 10*6/uL (4.40-5.60); RDW 20.5 % (11.5-14.5); WBC 6.73 X 10*3/uL (4.50-10.00)
[2025-03-11 10:56] LABS: BUN/Creat Ratio 35.57 Ratio (12.00-20.00); Blood Urea Nitrogen 49.8 mg/dL (9.0-27.0); Calcium 9.1 mg/dL (8.7-10.3); Chloride 99 mmol/L (96-109); Glucose 200 mg/dL (70-110); Potassium 3.3 mmol/L (3.5-5.5); Sodium 140 mmol/L (135-145)
[2025-03-11] MEDS ORDERED: NITROGLYCERIN SL TABS 0.4 MG TAB SUBLINGUAL PRN (11:47)
[2025-03-11] MEDS ORDERED: ALPRAZolam 0.25 MG TAB PO PRN (11:47)
--- NOTE | 2025-03-11 11:55 | P.PN ---
Subjective Progress Note Date: 03/11/25 This is a 64-year-old male patient of Dr. Lopez with past medical history of diabetes, hypertension, dyslipidemia, permanent atrial fibrillation, history of stroke. We have been asked to evaluate the patient for CHF. Patient states that he came into the hospital because he had swelling in the groin region. He states it has been going on for couple weeks but significantly worsening over the past week. He denies shortness of breath no chest pain chest pressure. He states he sometimes feels dizzy ever since he had a stroke and mostly related to unsteady gait. He denies palpitations. No syncopal episodes. Patient recently moved from [place]. He states since he has moved he has had weight gain. He states he is a non-smoker. No alcohol use. No caffeine use. He has a [id number] score of 5. He has been started on IV Lasix 40 mg every 12 hours. -EKG: Atrial fibrillation 63 bpm -Chest x-ray: Cardiomegaly and mild pulmonary vascular congestion. -Scrotal ultrasound: No torsion. Bilateral hydroceles. Scrotal edema present. -Laboratory studies: WBC 6.4, hemoglobin 10.1. BUN 58 creatinine 1.5 down from 1.62. proBNP 23,900. Urinalysis negative. -Home cardiac medications: Amlodipine 10 mg daily, atorvastatin 80 mg daily, Farxiga 5 mg daily, fenofibrate 160 mg daily, ferrous sulfate daily, Lasix 20 mg daily, losartan 100 mg daily, Xarelto 20 mg daily. -Echocardiogram reveals mildly impaired left ventricular systolic function with concentric LVH. EF 45 to 50%. Severe aortic stenosis with moderate aortic regurgitation and possible bicuspid aortic valve. Mild to moderate mitral regurgitation. Mild tricuspid regurgitation with moderate pulmonary hypertension. 03/11/2025 The patient was seen and examined sitting up on the side of the bed. Denies any shortness of breath or chest discomfort. Continues to have mild lower extremity edema. Scrotal edema is improving. Physical examination: Gen: This is 64-year-old male patient in no acute distress VS: reviewed HEENT: Head is atraumatic, normocephalic. Pupils equal, round. Sclerae is anicteric. NECK: Supple. No JVD. LUNGS: Clear to auscultation. No wheezes or rhonchi. No intercostal retractions. HEART: Irregular rate and rhythm. Grade 3/6 systolic murmur at the base. ABDOMEN: Soft No tenderness.+ Scrotal edema EXTREMITIES: Bilateral lower extremity edema. No calf tenderness. NEUROLOGICAL: Patient is awake, alert and oriented x3. Assessment: Acute on chronic systolic heart failure secondary to severe aortic stenosis Diabetes mellitus type 2 Hypertension Dyslipidemia Permanent atrial fibrillation History of stroke Severe aortic stenosis with moderate aortic regurgitation and possible bicuspid aortic valve Mild to moderate mitral regurgitation. Moderate pulmonary hypertension Chronic kidney disease Plan: From cardiology's perspective medications were reviewed and we will continue the same. Hold Xarelto for now. Patient to be scheduled for GENIE as well as right and left heart cath tomorrow to better assess the aortic valve. Further recommendations to follow based upon clinical course Nurse practitioner note has been reviewed, I agree with documented findings and plan of care. Patient was seen and examined. Objective - Vital Signs Vital signs: Vital Signs Temp 97.8 F 03/11/25 07:18 Pulse 75 03/11/25 07:18 Resp 16 03/11/25 07:18 BP 128/66 03/11/25 07:18 Pulse Ox 93 L 03/11/25 07:18 FiO2 Intake & Output 03/10/25 03/11/25 03/11/25 18:59 06:59 18:59 Intake Total 720 240 Output Total 1150 Balance 720 -1150 240 Weight 110.3 kg Intake: Oral 720 240 Output: Urine 1150 Other: Voiding Method Toilet Toilet Toilet Urinal Urinal Urinal # Voids 7 - Labs CBC & Chem 7: 03/11/25 05:33 03/11/25 05:33 Labs: Abnormal Lab Results - Last 24 Hours (Table) 03/10/25 03/10/25 03/10/25 Range/Units 12:17 17:30 20:35 RBC (4.40-5.60) X 10*6/uL Hgb (13.0-17.0) g/dL Hct (39.6-50.0) % MCH (27.0-32.0) pg MCHC (32.0-37.0) g/dL RDW (11.5-14.5) % Lymphocytes # (0.90-5.00) X 10*3/uL Eosinophils # (0.04-0.35) X 10*3/uL Potassium (3.5-5.5) mmol/L Anion Gap (4.00-12.00) mmol/L BUN (9.0-27.0) mg/dL Est GFR (CKD-EPI) (>=60) BUN/Creatinine Ratio (12.00-20.00) Ratio Glucose (70-110) mg/dL POC Glucose (mg/dL) 299 H 275 H 300 H (70-110) mg/dL Hemoglobin A1c (<=6.0) % 03/11/25 03/11/25 03/11/25 Range/Units 05:33 05:33 05:33 RBC 3.76 L (4.40-5.60) X 10*6/uL Hgb 9.4 L (13.0-17.0) g/dL Hct 31.1 L (39.6-50.0) % MCH 25.0 L (27.0-32.0) pg MCHC 30.2 L (32.0-37.0) g/dL RDW 20.5 H (11.5-14.5) % Lymphocytes # 0.67 L (0.90-5.00) X 10*3/uL Eosinophils # 0.43 H (0.04-0.35) X 10*3/uL Potassium 3.3 L (3.5-5.5) mmol/L Anion Gap 16.00 H (4.00-12.00) mmol/L BUN 49.8 H (9.0-27.0) mg/dL Est GFR (CKD-EPI) 55 L (>=60) BUN/Creatinine Ratio 35.57 H (12.00-20.00) Ratio Glucose 200 H (70-110) mg/dL POC Glucose (mg/dL) (70-110) mg/dL Hemoglobin A1c 7.1 H (<=6.0) % 03/11/25 Range/Units 06:19 RBC (4.40-5.60) X 10*6/uL Hgb (13.0-17.0) g/dL Hct (39.6-50.0) % MCH (27.0-32.0) pg MCHC (32.0-37.0) g/dL RDW (11.5-14.5) % Lymphocytes # (0.90-5.00) X 10*3/uL Eosinophils # (0.04-0.35) X 10*3/uL Potassium (3.5-5.5) mmol/L Anion Gap (4.00-12.00) mmol/L BUN (9.0-27.0) mg/dL Est GFR (CKD-EPI) (>=60) BUN/Creatinine Ratio (12.00-20.00) Ratio Glucose (70-110) mg/dL POC Glucose (mg/dL) 227 H (70-110) mg/dL Hemoglobin A1c (<=6.0) %
[2025-03-11 12:24] LABS: Glucose,Whole Blood 234 mg/dL (70-110)
[2025-03-11 12:38] LABS: NT-Pro-B-Type Natriuretic Pept 28140 pg/mL (0-125)
[2025-03-11] MEDS: ACETAMINOPHEN TAB 325 MG TAB PO PRN (16:32)
[2025-03-11 17:05] LABS: Glucose,Whole Blood 294 mg/dL (70-110)
[2025-03-11 20:05] LABS: Glucose,Whole Blood 308 mg/dL (70-110)
--- NOTE | 2025-03-11 21:53 | PN ---
PROGRESS NOTE DATE OF SERVICE: 03/11/2025 SUBJECTIVE: This is a 64-year-old gentleman, who was admitted with bilateral scrotal edema, is being closely monitored. The patient also has some cellulitis. No chest pain. No palpitation. PHYSICAL EXAMINATION: VITAL SIGNS: Pulse is 75, blood pressure 128/60, respirations 16. CHEST: Clear to auscultation. CARDIOVASCULAR: S1, S2. ABDOMEN: Soft. : Scrotal swelling and cellulitis present. LABORATORY DATA: Reviewed. NT-proBNP is 28,140. ASSESSMENT: 1. Bilateral scrotal edema as well as severe scrotal cellulitis. 2. Congestive heart failure acute exacerbation. 3. Elevated NT-proBNP. 4. History of atrial fibrillation. 5. Diabetes mellitus type 2. 6. Hypertension. 7. Multiple complex medical issues. RECOMMENDATIONS: Recommend to continue current management and continue symptomatic treatment. Otherwise, at this time continue with diuretics, monitor closely. Renal functions closely monitored. Continue the antibiotics. Closely followed with multiple consultants. Prognosis guarded. Further recommendations to follow. The patient is extremely keen on going home. MMODL / IJN: [id number] /
[2025-03-12] MEDS: ATORVASTATIN 80 MG TAB PO ONE (05:55)
[2025-03-12] MEDS: ASPIRIN 325 MG TAB PO ONE (05:55)
[2025-03-12 06:13] LABS: Glucose,Whole Blood 280 mg/dL (70-110)
[2025-03-12] MEDS ORDERED: fentaNYL (PF) 50 MCG/ML 2 ML AMP IVP PRN (07:00)
[2025-03-12] MEDS ORDERED: MIDAZOLAM 2 MG/2 ML VIAL IV PRN (07:00)
[2025-03-12] MEDS ORDERED: BENZOCAINE SPRAY 1 EACH MM PRN (07:00)
[2025-03-12] MEDS: ALPRAZolam 0.5 MG TAB PO PRN (08:10)
[2025-03-12 08:14] LABS: BUN/Creat Ratio 29.69 Ratio (12.00-20.00); Blood Urea Nitrogen 47.5 mg/dL (9.0-27.0); Glucose 270 mg/dL (70-110)
[2025-03-12 08:15] LABS: Carbon Dioxide 24.7 mmol/L (21.6-31.8); Chloride 99 mmol/L (96-109); Potassium 3.3 mmol/L (3.5-5.5); Sodium 139 mmol/L (135-145)
[2025-03-12 08:21] LABS: Basophils # (A) 0.07 X 10*3/uL (0.00-0.10); Basophils % (A) 1.1 %; Eosinophils % (A) 9.7 %; HCT 30.6 % (39.6-50.0); HGB 9.4 g/dL (13.0-17.0); Lymphocytes # (A) 0.67 X 10*3/uL (0.90-5.00); Lymphocytes % (A) 10.9 %; MCH 25.4 pg (27.0-32.0); MCHC 30.7 g/dL (32.0-37.0); MCV 82.7 FL (80.0-97.0); Mean Platelet Volume 10.7 FL (9.5-12.2); Monocytes # (A) 0.76 X 10*3/uL (0.20-1.00); Monocytes % (A) 12.3 %; NRBC Per 100 WBC 0 X 10*3/uL (0.00-0.01); Neutrophils # (A) 4.05 X 10*3/uL (1.80-7.70); Neutrophils % (A) 65.8 %; Platelet Count 246 X 10*3/uL (140-440); RDW 20.5 % (11.5-14.5); WBC 6.16 X 10*3/uL (4.50-10.00)
[2025-03-12 12:18] LABS: Glucose,Whole Blood 216 mg/dL (70-110)
--- NOTE | 2025-03-12 15:40 | P.PN ---
Subjective Progress Note Date: 03/11/25 Principal diagnosis: Reason for follow-up is scrotal cellulitis Patient is a 64-year-old male with a past medical history significant for diabetes mellitus hypertension CVA TIA atrial fibrillation heart failure presenting to the hospital for evaluation of increasing scrotal swelling as well as lower extremity swelling and was diagnosed with a scrotal cellulitis servando grimes this consultation. On today's evaluation that is 03/11/2025,the patient denies any fever or any chills, patient is breathing comfortably on 2 L nasal oxygen air, the patient denies chest pain shortness of breath and no significant cough, patient denies abdominal pain, no nausea vomiting or diarrhea. Scrotal swelling slightly decreased Patient white count is 6.73, creatinine is 1.4 Objective - Vital Signs Vital signs: Vital Signs Temp 97.8 F 03/11/25 07:18 Pulse 75 03/11/25 07:18 Resp 16 03/11/25 07:18 BP 128/66 03/11/25 07:18 Pulse Ox 93 L 03/11/25 07:18 FiO2 Intake & Output 03/10/25 03/11/25 03/11/25 18:59 06:59 18:59 Intake Total 720 240 Output Total 1150 140 Balance 720 -1150 100 Weight 110.3 kg Intake: Oral 720 240 Output: Urine 1150 140 Other: Voiding Method Toilet Toilet Toilet Urinal Urinal Urinal # Voids 7 - Exam GENERAL DESCRIPTION: An elderly male lying in bed in no distress RESPIRATORY SYSTEM: Unlabored breathing , decreased breath sounds at bases HEART: S1 S2 regular rate and rhythm , ABDOMEN: Soft , no tenderness : Scrotal swelling and redness slightly decreased EXTREMITIES: 1+ edema feet - Labs CBC & Chem 7: 03/12/25 05:02 03/12/25 05:02 Labs: Abnormal Lab Results - Last 24 Hours (Table) 03/10/25 03/10/25 03/11/25 Range/Units 17:30 20:35 05:33 RBC (4.40-5.60) X 10*6/uL Hgb (13.0-17.0) g/dL Hct (39.6-50.0) % MCH (27.0-32.0) pg MCHC (32.0-37.0) g/dL RDW (11.5-14.5) % Lymphocytes # (0.90-5.00) X 10*3/uL Eosinophils # (0.04-0.35) X 10*3/uL Potassium (3.5-5.5) mmol/L Anion Gap (4.00-12.00) mmol/L BUN (9.0-27.0) mg/dL Est GFR (CKD-EPI) (>=60) BUN/Creatinine Ratio (12.00-20.00) Ratio Glucose (70-110) mg/dL POC Glucose (mg/dL) 275 H 300 H (70-110) mg/dL Hemoglobin A1c 7.1 H (<=6.0) % NT-Pro-B Natriuret Pep (0-125) pg/mL 03/11/25 03/11/25 03/11/25 Range/Units 05:33 05:33 06:19 RBC 3.76 L (4.40-5.60) X 10*6/uL Hgb 9.4 L (13.0-17.0) g/dL Hct 31.1 L (39.6-50.0) % MCH 25.0 L (27.0-32.0) pg MCHC 30.2 L (32.0-37.0) g/dL RDW 20.5 H (11.5-14.5) % Lymphocytes # 0.67 L (0.90-5.00) X 10*3/uL Eosinophils # 0.43 H (0.04-0.35) X 10*3/uL Potassium 3.3 L (3.5-5.5) mmol/L Anion Gap 16.00 H (4.00-12.00) mmol/L BUN 49.8 H (9.0-27.0) mg/dL Est GFR (CKD-EPI) 55 L (>=60) BUN/Creatinine Ratio 35.57 H (12.00-20.00) Ratio Glucose 200 H (70-110) mg/dL POC Glucose (mg/dL) 227 H (70-110) mg/dL Hemoglobin A1c (<=6.0) % NT-Pro-B Natriuret Pep 23655 H (0-125) pg/mL 03/11/25 Range/Units 12:23 RBC (4.40-5.60) X 10*6/uL Hgb (13.0-17.0) g/dL Hct (39.6-50.0) % MCH (27.0-32.0) pg MCHC (32.0-37.0) g/dL RDW (11.5-14.5) % Lymphocytes # (0.90-5.00) X 10*3/uL Eosinophils # (0.04-0.35) X 10*3/uL Potassium (3.5-5.5) mmol/L Anion Gap (4.00-12.00) mmol/L BUN (9.0-27.0) mg/dL Est GFR (CKD-EPI) (>=60) BUN/Creatinine Ratio (12.00-20.00) Ratio Glucose (70-110) mg/dL POC Glucose (mg/dL) 234 H (70-110) mg/dL Hemoglobin A1c (<=6.0) % NT-Pro-B Natriuret Pep (0-125) pg/mL Assessment and Plan (1) Scrotal edema Current Visit: Yes Status: Acute Code(s): N50.89 - OTHER SPECIFIED DISORDERS OF THE MALE GENITAL ORGANS SNOMED Code(s): 50754874 (2) Cellulitis of scrotum Current Visit: Yes Status: Acute Code(s): N49.2 - INFLAMMATORY DISORDERS OF SCROTUM SNOMED Code(s): 18049786 Plan: 1patient presented hospital with significant swelling to his scrotal area for the last 2 weeks is more likely related to fluid overload underlying congestive heart failure as the patient also have significant swelling to bilateral lower extremity there is mild erythema on the leg cellulitis less likely but not entirely excluded as the patient not running any fever or any elevated white cou nt 2-patient is afebrile white count normal continue with cefazolin along with aggressive diuresis Dictation was produced using [employer] dictation software. please excuse any grammatical, word or spelling errors. Time with Patient: Less than 30
--- NOTE | 2025-03-12 15:41 | P.PN ---
Subjective Progress Note Date: 03/12/25 Principal diagnosis: Reason for follow-up is scrotal cellulitis Patient is a 64-year-old male with a past medical history significant for diabetes mellitus hypertension CVA TIA atrial fibrillation heart failure presenting to the hospital for evaluation of increasing scrotal swelling as well as lower extremity swelling and was diagnosed with a scrotal cellulitis servando grimes this consultation. On today's evaluation that is 03/12/2025,the patient remains to be afebrile, patient is on 2 L nasal cannula supplemental oxygen and denies any shortness of breath no chest pain or cough.Patient denies having any nausea or vomiting, no abdominal pain and no diarrhea, scrotal swelling has decreased no open wound or any drainage. Patient white count 6.16 creatinine is 1.6 Objective - Vital Signs Vital signs: Vital Signs Temp 98.1 F 03/12/25 14:30 Pulse 67 03/12/25 14:30 Resp 14 03/12/25 14:30 BP 127/68 03/12/25 14:30 Pulse Ox 97 03/12/25 14:30 FiO2 Intake & Output 03/11/25 03/12/25 03/12/25 18:59 06:59 18:59 Intake Total 358 1071 240 Output Total 140 2650 Balance 218 -1579 240 Weight 97.5 kg Intake: Oral 358 1071 240 Output: Urine 140 2650 Other: Voiding Method Toilet Toilet Toilet Urinal Urinal Urinal # Voids 4 3 # Bowel Movements 1 - Exam GENERAL DESCRIPTION: An elderly male lying in bed in no distress RESPIRATORY SYSTEM: Unlabored breathing , decreased breath sounds at bases HEART: S1 S2 regular rate and rhythm , ABDOMEN: Soft , no tenderness : Scrotal swelling and redness slightly decreased EXTREMITIES: 1+ edema feet - Labs CBC & Chem 7: 03/12/25 05:02 03/12/25 05:02 Labs: Abnormal Lab Results - Last 24 Hours (Table) 03/11/25 03/11/25 03/12/25 Range/Units 17:04 20:00 05:02 RBC 3.70 L (4.40-5.60) X 10*6/uL Hgb 9.4 L (13.0-17.0) g/dL Hct 30.6 L (39.6-50.0) % MCH 25.4 L (27.0-32.0) pg MCHC 30.7 L (32.0-37.0) g/dL RDW 20.5 H (11.5-14.5) % Lymphocytes # 0.67 L (0.90-5.00) X 10*3/uL Eosinophils # 0.60 H (0.04-0.35) X 10*3/uL Potassium (3.5-5.5) mmol/L Anion Gap (4.00-12.00) mmol/L BUN (9.0-27.0) mg/dL Creatinine (0.6-1.5) mg/dL Est GFR (CKD-EPI) (>=60) BUN/Creatinine Ratio (12.00-20.00) Ratio Glucose (70-110) mg/dL POC Glucose (mg/dL) 294 H 308 H (70-110) mg/dL 03/12/25 03/12/25 03/12/25 Range/Units 05:02 06:06 12:16 RBC (4.40-5.60) X 10*6/uL Hgb (13.0-17.0) g/dL Hct (39.6-50.0) % MCH (27.0-32.0) pg MCHC (32.0-37.0) g/dL RDW (11.5-14.5) % Lymphocytes # (0.90-5.00) X 10*3/uL Eosinophils # (0.04-0.35) X 10*3/uL Potassium 3.3 L (3.5-5.5) mmol/L Anion Gap 15.30 H (4.00-12.00) mmol/L BUN 47.5 H (9.0-27.0) mg/dL Creatinine 1.6 H (0.6-1.5) mg/dL Est GFR (CKD-EPI) 47 L (>=60) BUN/Creatinine Ratio 29.69 H (12.00-20.00) Ratio Glucose 270 H (70-110) mg/dL POC Glucose (mg/dL) 280 H 216 H (70-110) mg/dL Assessment and Plan (1) Scrotal edema Current Visit: Yes Status: Acute Code(s): N50.89 - OTHER SPECIFIED DISORDERS OF THE MALE GENITAL ORGANS SNOMED Code(s): 49179576 (2) Cellulitis of scrotum Current Visit: Yes Status: Acute Code(s): N49.2 - INFLAMMATORY DISORDERS OF SCROTUM SNOMED Code(s): 76441047 Plan: 1patient presented hospital with significant swelling to his scrotal area for the last 2 weeks is more likely related to fluid overload underlying congestive heart failure as the patient also have significant swelling to bilateral lower extremity there is mild erythema on the leg cellulitis less likely but not entirely excluded as the patient not running any fever or any elevated white count 2-patient is afebrile white count normal Currently on cefazolin to continue while inpatient transition to oral Keflex on discharge Dictation was produced using [employer] dictation software. please excuse any grammatical, word or spelling errors. Time with Patient: Less than 30
[2025-03-12 17:04] LABS: Glucose,Whole Blood 304 mg/dL (70-110)
[2025-03-12 19:55] LABS: Glucose,Whole Blood 303 mg/dL (70-110)
[2025-03-13 05:42] LABS: Glucose,Whole Blood 291 mg/dL (70-110)
--- NOTE | 2025-03-13 07:04 | P.PN ---
Subjective Progress Note Date: 03/12/25 This is a 64-year-old male who was recently admitted with bilateral scrotal edema being closely monitored with infectious disease and cardiology following. Patient also admitted for CHF exacerbation. Cardiology discussing possible cardiac catheterization although patient is unsure and creatinine is 1.7 awaiting improvement before catheterization. Patient was maintained on IV Lasix only is significantly improved, will discontinue IV Lasix at this time and follow-up on repeat labs in AM. Continue wound care per ID recommendations and nystatin in the groin area and elevating scrotum. Patient is afebrile with no reported chest pain or shortness of breath at this time. Patient continues to inquire when he can go home. Review of systems: Constitutional: reports of fatigue, no fever, or chills Cardiovascular: No reports of chest pain or palpitations Respiratory: No reports of shortness of breath or cough GI: No reports of nausea, no reports of vomiting, no diarrhea : No reports of dysuria or retention Neurovascular: reports of generalized weakness All medications have been reviewed PHYSICAL EXAMINATION: GENERAL: The patient is alert and oriented x 2-3, Well developed, elderly appearing, obese HEENT: Pupils are round and equally reacting to light. EOMI. no scleral icterus. No conjunctival pallor. Normocephalic, atraumatic. No pharyngeal erythema. No thyromegaly. CARDIOVASCULAR: S1 and S2 muffled PULMONARY: diminished breath sounds bilaterally with no wheezing or rhonchi noted. ABDOMEN: soft. Nontender on exam. obese. non-distended, normoactive bowel sounds. No palpable organomegaly. Scrotal swelling with surrounding redness, skin intact is swelling and redness is significantly improved MUSCULOSKELETAL: No joint swelling or deformity. EXTREMITIES: No cyanosis, clubbing, or pedal edema. NEUROLOGICAL: Gross neurological examination did not reveal any focal deficits. Diffuse weakness SKIN: No rashes. Assessment: Bilateral scrotal edema as well as severe scrotal cellulitis, present on admission Congestive heart failure, acute exacerbation Elevated BNP secondary to CHF exacerbation History of atrial fibrillation, currently rate controlled diabetes mellitus, type I, normally wears an insulin pump, uncontrolled with hyperglycemia Obesity with a BMI of 33.6 Hypertension GI prophylaxis DVT prophylaxis Full code Plan: Recommend to continue with current medications and management with cardiology and infectious disease following. Cardiology discussing possible cardiac catheterization although kidney functions are elevated at 1.7 creatinine and w ill follow-up on repeat labs and discussed with cardiology if moving forward or this can be an outpatient procedure Continue scrotal elevation and wound care with antibiotics and will discuss with infectious disease regarding discharge planning. Scrotal swelling is significantly improved and redness has improved as well. Continue with nystatin to the groin area Encourage increase activity as tolerated Continue monitoring Accu-Cheks AC and at bedtime and will continue sliding scale and add long-acting as blood sugars are uncontrolled. With consultations regarding possible discharge planning in the next 24 to 48 hours. Patient reports he would like to go home. The impression and plan of care has been dictated by Rafaela Peterson, nurse practitioner as directed. Dr. Dameon MD I have performed a history and examination and MDM of this patient, discussed the same with the dictator, and agree with the dictator's assessment and plan as written ,documented as a scribe. Based on total visit time, I have performed more than 50% of the visit. Any additional findings or plans will be noted. Objective - Vital Signs Vital signs: Vital Signs Temp 97.3 F L 03/13/25 00:14 Pulse 78 03/13/25 00:14 Resp 20 03/13/25 00:14 BP 130/72 03/13/25 00:14 Pulse Ox 95 03/13/25 00:14 FiO2 Intake & Output 03/12/25 03/12/25 03/13/25 06:59 18:59 06:59 Intake Total 1071 240 118 Output Total 2650 1900 Balance -1579 240 -1782 Weight 97.5 kg Intake: Oral 1071 240 118 Output: Urine 2650 1900 Other: Voiding Method Toilet Toilet Toilet Urinal Urinal Urinal # Voids 3 - Labs CBC & Chem 7: 03/12/25 05:02 03/12/25 05:02 Labs: Abnormal Lab Results - Last 24 Hours (Table) 03/12/25 03/12/25 03/12/25 Range/Units 05:02 05:02 06:06 RBC 3.70 L (4.40-5.60) X 10*6/uL Hgb 9.4 L (13.0-17.0) g/dL Hct 30.6 L (39.6-50.0) % MCH 25.4 L (27.0-32.0) pg MCHC 30.7 L (32.0-37.0) g/dL RDW 20.5 H (11.5-14.5) % Lymphocytes # 0.67 L (0.90-5.00) X 10*3/uL Eosinophils # 0.60 H (0.04-0.35) X 10*3/uL Potassium 3.3 L (3.5-5.5) mmol/L Anion Gap 15.30 H (4.00-12.00) mmol/L BUN 47.5 H (9.0-27.0) mg/dL Creatinine 1.6 H (0.6-1.5) mg/dL Est GFR (CKD-EPI) 47 L (>=60) BUN/Creatinine Ratio 29.69 H (12.00-20.00) Ratio Glucose 270 H (70-110) mg/dL POC Glucose (mg/dL) 280 H (70-110) mg/dL 03/12/25 03/12/25 03/12/25 Range/Units 12:16 17:03 19:54 RBC (4.40-5.60) X 10*6/uL Hgb (13.0-17.0) g/dL Hct (39.6-50.0) % MCH (27.0-32.0) pg MCHC (32.0-37.0) g/dL RDW (11.5-14.5) % Lymphocytes # (0.90-5.00) X 10*3/uL Eosinophils # (0.04-0.35) X 10*3/uL Potassium (3.5-5.5) mmol/L Anion Gap (4.00-12.00) mmol/L BUN (9.0-27.0) mg/dL Creatinine (0.6-1.5) mg/dL Est GFR (CKD-EPI) (>=60) BUN/Creatinine Ratio (12.00-20.00) Ratio Glucose (70-110) mg/dL POC Glucose (mg/dL) 216 H 304 H 303 H (70-110) mg/dL
[2025-03-13] MEDS: INSULIN GLARGINE (LANTUS) 100 UNIT/ML SYR SQ SCH (07:43)
[2025-03-13] MEDS: ASPIRIN 81 MG PO STA (08:07)
[2025-03-13 08:35] LABS: BUN/Creat Ratio 34.23 Ratio (12.00-20.00); Blood Urea Nitrogen 44.5 mg/dL (9.0-27.0); Calcium 9.2 mg/dL (8.7-10.3); Carbon Dioxide 26.4 mmol/L (21.6-31.8); Chloride 99 mmol/L (96-109); Glucose 321 mg/dL (70-110); Magnesium 1.7 mg/dL (1.5-2.4); Potassium 3.5 mmol/L (3.5-5.5); Sodium 139 mmol/L (135-145)
[2025-03-13 08:53] LABS: Basophils # (A) 0.08 X 10*3/uL (0.00-0.10); Basophils % (A) 1.4 %; Eosinophils # (A) 0.77 X 10*3/uL (0.04-0.35); Eosinophils % (A) 13.8 %; HCT 32.5 % (39.6-50.0); HGB 9.6 g/dL (13.0-17.0); Lymphocytes # (A) 0.52 X 10*3/uL (0.90-5.00); Lymphocytes % (A) 9.3 %; MCH 24.9 pg (27.0-32.0); MCHC 29.5 g/dL (32.0-37.0); MCV 84.2 FL (80.0-97.0); Mean Platelet Volume 10.4 FL (9.5-12.2); Monocytes # (A) 0.69 X 10*3/uL (0.20-1.00); Monocytes % (A) 12.4 %; NRBC Per 100 WBC 0 X 10*3/uL (0.00-0.01); Neutrophils % (A) 62.7 %; Platelet Count 245 X 10*3/uL (140-440); RBC 3.86 X 10*6/uL (4.40-5.60); RDW 20.6 % (11.5-14.5); WBC 5.58 X 10*3/uL (4.50-10.00)
[2025-03-13 12:58] LABS: Glucose,Whole Blood 235 mg/dL (70-110)
[2025-03-13] MEDS: BENZOCAINE SPRAY 1 EACH MM ONE ×2 (13:30→13:34)
[2025-03-13] MEDS: MIDAZOLAM 2 MG/2 ML VIAL IVP ONE (13:35)
[2025-03-13] MEDS: fentaNYL (PF) 50 MCG/1 ML VIAL IVP ONE (13:35)
[2025-03-13] MEDS: VERAPAMIL SYRINGE (5 MG/10 ML) INTRAARTER ONE (13:47)
[2025-03-13] MEDS: LIDOCAINE 1% INJ 10MG/ML (20 ML MDV) SQ ONE (13:47)
[2025-03-13] MEDS: SODIUM CHLORIDE 0.9% 1,000 ML IV ONE ×2 (13:49→13:57)
[2025-03-13] MEDS: HEPARIN SODIUM 1,000 UN/ML (10ML VL) IVP ONE (13:56)
[2025-03-13] MEDS: HEPARIN SODIUM,PORCINE (1 ML) 2,500 UNIT in SODIUM CHLORIDE 0.9% 250 ML IRRIGATION PRN (13:57)
[2025-03-13] MEDS: HEPARIN SODIUM,PORCINE 10,000 UNIT in SODIUM CHLORIDE 0.9% 1,000 ML IRRIGATION PRN (13:57)
[2025-03-13] MEDS ORDERED: RX INFO: IV CONTRAST WAS GIVEN 1 EACH MISC MISCELLANE PRN (14:14)
[2025-03-13] MEDS: IOPAMIDOL-370 100ML BTL INJ ONE (14:19)
[2025-03-13] MEDS: SODIUM CHLORIDE 0.9% 1,000 ML IV SCH (16:59)
[2025-03-13 17:45] LABS: Glucose,Whole Blood 192 mg/dL (70-110)
[2025-03-13 19:51] LABS: Glucose,Whole Blood 257 mg/dL (70-110)
--- NOTE | 2025-03-13 20:24 | P.PN ---
Subjective Progress Note Date: 03/13/25 Principal diagnosis: Reason for follow-up is scrotal cellulitis Patient is a 64-year-old male with a past medical history significant for diabetes mellitus hypertension CVA TIA atrial fibrillation heart failure presenting to the hospital for evaluation of increasing scrotal swelling as well as lower extremity swelling and was diagnosed with a scrotal cellulitis servando grimes this consultation. On today's evaluation that is 03/13/2025, the patient continues to be afebrile, the patient is on room air and breathing comfortably, the Pt denies having any chest pain or cough, the patient denies having any abdominal pain no vomiting or any diarrhea has been reported by the nursing staff, denies pain to the scrotal area. Patient white count is 5.58, creatinine is 1.3 Objective - Vital Signs Vital signs: Vital Signs Temp 98.1 F 03/13/25 07:00 Pulse 73 03/13/25 07:00 Resp 16 03/13/25 07:00 BP 106/60 03/13/25 07:00 Pulse Ox 96 03/13/25 07:00 FiO2 Intake & Output 03/12/25 03/13/25 03/13/25 18:59 06:59 18:59 Intake Total 240 118 Output Total 3400 300 Balance 240 -6042 -300 Weight 97.3 kg Intake: Oral 240 118 Output: Urine 3400 300 Other: Voiding Method Toilet Toilet Urinal Urinal # Voids 3 - Exam GENERAL DESCRIPTION: An elderly male lying in bed in no distress RESPIRATORY SYSTEM: Unlabored breathing , decreased breath sounds at bases HEART: S1 S2 regular rate and rhythm , ABDOMEN: Soft , no tenderness : Scrotal swelling and redness slightly decreased EXTREMITIES: 1+ edema feet - Labs CBC & Chem 7: 03/13/25 05:09 03/13/25 05:09 Labs: Abnormal Lab Results - Last 24 Hours (Table) 03/12/25 03/12/25 03/13/25 Range/Units 17:03 19:54 05:09 RBC 3.86 L (4.40-5.60) X 10*6/uL Hgb 9.6 L (13.0-17.0) g/dL Hct 32.5 L (39.6-50.0) % MCH 24.9 L (27.0-32.0) pg MCHC 29.5 L (32.0-37.0) g/dL RDW 20.6 H (11.5-14.5) % Lymphocytes # 0.52 L (0.90-5.00) X 10*3/uL Eosinophils # 0.77 H (0.04-0.35) X 10*3/uL Anion Gap (4.00-12.00) mmol/L BUN (9.0-27.0) mg/dL BUN/Creatinine Ratio (12.00-20.00) Ratio Glucose (70-110) mg/dL POC Glucose (mg/dL) 304 H 303 H (70-110) mg/dL 03/13/25 03/13/25 03/13/25 Range/Units 05:09 05:39 12:56 RBC (4.40-5.60) X 10*6/uL Hgb (13.0-17.0) g/dL Hct (39.6-50.0) % MCH (27.0-32.0) pg MCHC (32.0-37.0) g/dL RDW (11.5-14.5) % Lymphocytes # (0.90-5.00) X 10*3/uL Eosinophils # (0.04-0.35) X 10*3/uL Anion Gap 13.60 H (4.00-12.00) mmol/L BUN 44.5 H (9.0-27.0) mg/dL BUN/Creatinine Ratio 34.23 H (12.00-20.00) Ratio Glucose 321 H (70-110) mg/dL POC Glucose (mg/dL) 291 H 235 H (70-110) mg/dL Assessment and Plan (1) Scrotal edema Current Visit: Yes Status: Acute Code(s): N50.89 - OTHER SPECIFIED DISORDERS OF THE MALE GENITAL ORGANS SNOMED Code(s): 25878913 (2) Cellulitis of scrotum Current Visit: Yes Status: Acute Code(s): N49.2 - INFLAMMATORY DISORDERS OF SCROTUM SNOMED Code(s): 13981549 Plan: 1patient presented hospital with significant swelling to his scrotal area for the last 2 weeks is more likely related to fluid overload underlying congestive heart failure as the patient also have significant swelling to bilateral lower extremity there is mild erythema on the leg cellulitis less likely but not entirely excluded as the patient not running any fever or any elevated white count 2-patient is afebrile white count normal, patient to be treated with cefazolin while inpatient and hopefully transition to oral antibiotics on discharge Family the bedside question answered Dictation was produced using [employer] dictation software. please excuse any grammatical, word or spelling errors. Time with Patient: Less than 30
--- NOTE | 2025-03-13 22:32 | P.PCN ---
Date of Procedure: 03/13/25 Operative Findings: Transesophageal echocardiogram Performing physician Nikita Lopez MD Indication Valvular heart disease Complication None Level of sedation Moderate to sedation length of 20 minutes Procedure description After obtaining an informed consent the patient was brought to the cardiac Photographic Editor. The patient was turned into left lateral position. The pulse oximetry and heart rate monitors were attached to the patient. Subsequently the patient's throat was sprayed using lidocaine. Conscious sedation was induced using Versed and fentanyl in divided doses. Subsequently the transesophageal echocardiogram was advanced to the mid esophageal border 2D echocardiogram images as well as co gera Doppler and pulse-wave Doppler images were performed and subsequently the probe was advanced to the stomach. Transgastric views were obtained as well. The procedure was completed with no complication Conclusion 1. Impaired LV function with EF between 40 to 45% and global hypokinesia 2. Heavily calcified bicuspid aortic valve with fusion of the right and left coronary cusp with no evidence of aortic insufficiency and evidence of severe aortic stenosis with a mean gradient of 40 mmHg and mildly dilated ascending aorta 3. Mild to moderate mitral regurgitation 4. No evidence of pericardial effusion 5. Intact interatrial septum
--- NOTE | 2025-03-13 22:47 | P.PCN ---
Date of Procedure: 03/13/25 Operative Findings: Right and left heart catheterization Performing physician Nikita Lopez MD Procedure performed Right heart catheterization Left heart catheterization Selective right and left coronary angiogram Ultrasound-guided access of the right radial artery and right common femoral vein Indication Symptomatic aortic stenosis Complications None Level of sedation Moderate with sedation length 30 minutes Procedure description After obtaining informed consent the patient was brought to the cardiac Clothes Drier Repairer. The right radial artery was cannulated using micropuncture technique under ultrasound guidance the micropuncture wire passed easily then I placed a 6 Tristanian 11 cm sheath at the right radial artery and gave the patient 2 mg of verapamil intra-arterial and 5000 units of heparin intravenous. After that the right common femoral vein was cannulated using micropuncture technique under u ltrasound guidance the micropuncture wire passed easily then I placed a 6 Tristanian 11 cm sheath at the right common femoral vein. Subsequently right heart catheterization was performed using 6 Tristanian [place] catheter. Left heart catheterization was performed using a JR4 catheter which crossed the aortic valve with a J-wire. Selective right and left and right coronary angiogram performed using JR4 and JL 4 catheters. The procedure was completed with no complication. Hemodynamics 1. The pulmonary capillary wedge pressure was 28 mmHg 2. PA pressure as well as follow-up systolic of 66 and diastolic of 16 and mean of 40 mmHg 3. RV pressures were as follow systolic of 70 and end-diastolic of 12 4. RA pressure was 10 mmHg mmHg 5. The LVEDP was 12 mmHg 6. The cardiac output was 4.9 L/min with an index of 2.35 L/min/m 7. The aortic valve area was 1.06 cm with indexed area of 0.51 cm/m 8. The transpulmonary gradient was 12 mmHg 9. The mean gradient across the aortic valve was 30 mmHg Coronary angiogram The RCA is a large-caliber vessel and the dominant vessel with mild to moderate disease with no evidence of high-grade stenosis and distally bifurcates into PDA and PLV branches with no evidence of high-grade stenosis The left main is calcified with mild disease only The left circumflex is a large-caliber vessel nondominant vessel and gives rise into a large OM. The proximal LCx has mild to moderate disease identified on the PALMER caudal and also the first obtuse marginal branch has mild to moderate disease as well The LAD is a large caliber vessel with also mild to moderate disease was identified on the artery occluded with no evidence of high-grade stenosis identified Conclusion 1. Severe aortic stenosis with an aortic valve area of 1.06 cm and indexed area of 0.51 cm/m. The mean gradient across the aortic valve was underestimated (30 mmHg) likely because of cardiomyopathy with EF between 40 to 45%. 2. 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 Elevated biventricular filling pressures 4. Mild to moderate nonobstructive coronary artery disease Plan 1. Continue the management for heart failure 2. Consider referring the patient to undergo an AVR either as an inpatient or as an outpatient
--- NOTE | 2025-03-14 05:43 | P.PN ---
Subjective Progress Note Date: 03/13/25 This is a 64-year-old male who was recently admitted with bilateral scrotal edema being closely monitored with infectious disease and cardiology following. Patient also admitted for CHF exacerbation. Cardiology discussing possible cardiac catheterization although patient is unsure and creatinine is 1.7 awaiting improvement before catheterization. Patient was maintained on IV Lasix only is significantly improved, will discontinue IV Lasix at this time and follow-up on repeat labs in AM. Continue wound care per ID recommendations and nystatin in the groin area and elevating scrotum. Patient is afebrile with no reported chest pain or shortness of breath at this time. Patient continues to inquire when he can go home. 03/13/2025 Patient is currently n.p.o. and scheduled to undergo GENIE with cardiac catheterization with Dr. Lopez sometime today. Patient would like to go home and if cleared by cardiology will discuss discharge planning. Patient is maintained on cefazolin and will transition to Keflex on discharge per ID recommendations along with Diflucan and nystatin powder. Patient has been encouraged to elevate scrotum while at rest. Swelling has improved and redness has significantly improved. Patient blood sugars are variable recommend monitoring closely. Patient does wear an insulin pump which is currently off. Family at the bedside reports the insulin pump is at home currently. Patient is afebrile with no reports of chest pain or shortness of breath. Patient denies any nausea or vomiting and had been tolerating diet. Patient remains n.p.o. diet will be resumed once cleared by surgery post catheterization. Continue monitoring Accu- Cheks and we will await cardiology report. Review of systems: Constitutional: No reports of fatigue, no fever, or chills Cardiovascular: No reports of chest pain or palpitations Respiratory: No reports of shortness of breath or cough GI: No reports of nausea, no reports of vomiting, no diarrhea : No reports of dysuria or retention Neurovascular: reports of generalized weakness All medications have been reviewed PHYSICAL EXAMINATION: GENERAL: The patient is alert and oriented x 2-3, fatigues easily, but easily arousable. Well developed, elderly appearing, obese HEENT: Pupils are round and equally reacting to light. EOMI. no scleral icterus. No conjunctival pallor. Normocephalic, atraumatic. No pharyngeal erythema. No thyromegaly. CARDIOVASCULAR: S1 and S2 muffled PULMONARY: diminished breath sounds bilaterally with no wheezing or rhonchi noted. ABDOMEN: soft. Nontender on exam. obese. non-distended, normoactive bowel sounds. No palpable organomegaly. Scrotal swelling with surrounding redness, skin intact is swelling and redness is significantly improved MUSCULOSKELETAL: No joint swelling or deformity. EXTREMITIES: No cyanosis, clubbing, or pedal edema. NEUROLOGICAL: Gross neurological examination did not reveal any focal deficits. Diffuse weakness SKIN: No rashes. Assessment: Bilateral scrotal edema as well as severe scrotal cellulitis, present on admission Acute on chronic congestive heart failure, systolic dysfunction with acute exacerbation Severe aortic stenosis Elevated BNP secondary to CHF exacerbation History of permanent atrial fibrillation, currently rate controlled diabetes mellitus, type I, normally wears an insulin pump, uncontrolled with hyperglycemia History of CVA History of severe aortic stenosis with moderate aortic regurgitation Moderate pulmonary hypertension History of chronic kidney disease Obesity with a BMI of 33.6 Hypertension GI prophylaxis DVT prophylaxis Full code Plan: Recommend to continue with current medications and management with cardiology and infectious disease following. Patient is continued on cefazolin and will transition to oral Keflex on discharge per ID recommendations. Continue Diflucan and nystatin powder to the groin area Cardiology following and patient is scheduled for cardiac catheterization with GENIE today. Procedure was delayed as creatinine was elevated at 1.7 yesterday given gentle hydration. Xarelto currently on hold per cardiology until catheterization and will await report. report remains pending at this time and unsure if patient has been cleared by cardiology and awaiting official report to determine if patient has been cleared for discharge home. Will continue postcardiac catheterization protocol with TR band and await cardiac clearance. Encourage increase activity as tolerated Continue monitoring Accu-Cheks AC and at bedtime and will continue sliding scale as well as long-acting as blood sugars are uncontrolled. Patient does wear an insulin pump although family at the bedside reports it is at home Patient continues to inquire about when he is able to go home and will discuss further with cardiology. Discussed with infectious disease and patient will continue on oral Keflex on discharge. With consultations regarding possible discharge planning in the next 24 to 48 hours. The impression and plan of care has been dictated by Rafaela Peterson, Nurse Practitioner as directed. Dr. Hasmukh MD I have performed a history and examination and MDM of this patient, discussed the same with the dictator, and agree with the dictator's assessment and plan as written ,documented as a scribe. Based on total visit time, I have performed more than 50% of the visit. Objective - Vital Signs Vital signs: Vital Signs Temp 97.4 F L 03/14/25 00:33 Pulse 78 03/14/25 00:33 Resp 20 03/14/25 00:33 BP 121/72 03/14/25 00:33 Pulse Ox 99 03/14/25 00:33 FiO2 Intake & Output 03/13/25 03/13/25 03/14/25 06:59 18:59 06:59 Intake Total 118 850 709 Output Total 3400 700 800 Balance -3282 150 -91 Weight 97.3 kg 96.6 kg Intake: IV 850 Oral 118 709 Output: Urine 3400 700 800 Other: Voiding Method Toilet Toilet Urinal Urinal - Labs CBC & Chem 7: 03/13/25 05:09 03/13/25 05:09 Labs: Abnormal Lab Results - Last 24 Hours (Table) 03/13/25 03/13/25 03/13/25 Range/Units 05:09 05:09 05:39 RBC 3.86 L (4.40-5.60) X 10*6/uL Hgb 9.6 L (13.0-17.0) g/dL Hct 32.5 L (39.6-50.0) % MCH 24.9 L (27.0-32.0) pg MCHC 29.5 L (32.0-37.0) g/dL RDW 20.6 H (11.5-14.5) % Lymphocytes # 0.52 L (0.90-5.00) X 10*3/uL Eosinophils # 0.77 H (0.04-0.35) X 10*3/uL Anion Gap 13.60 H (4.00-12.00) mmol/L BUN 44.5 H (9.0-27.0) mg/dL BUN/Creatinine Ratio 34.23 H (12.00-20.00) Ratio Glucose 321 H (70-110) mg/dL POC Glucose (mg/dL) 291 H (70-110) mg/dL 03/13/25 03/13/25 03/13/25 Range/Units 12:56 17:43 19:46 RBC (4.40-5.60) X 10*6/uL Hgb (13.0-17.0) g/dL Hct (39.6-50.0) % MCH (27.0-32.0) pg MCHC (32.0-37.0) g/dL RDW (11.5-14.5) % Lymphocytes # (0.90-5.00) X 10*3/uL Eosinophils # (0.04-0.35) X 10*3/uL Anion Gap (4.00-12.00) mmol/L BUN (9.0-27.0) mg/dL BUN/Creatinine Ratio (12.00-20.00) Ratio Glucose (70-110) mg/dL POC Glucose (mg/dL) 235 H 192 H 257 H (70-110) mg/dL
[2025-03-14 06:00] LABS: Glucose,Whole Blood 265 mg/dL (70-110)
[2025-03-14 07:28] LABS: African American GFR (CKD) >90 (>60 ml/min/1.73 sqM); Anion Gap 12 mmol/L; Blood Urea Nitrogen 39 mg/dL (9-20); Calcium 9.3 mg/dL (8.4-10.2); Carbon Dioxide 26 mmol/L (22-30); Chloride 98 mmol/L (98-107); Glucose 229 mg/dL (74-99); Magnesium 1.7 mg/dL (1.6-2.3); Non-African American GFR(CKD) 89 (>60 ml/min/1.73 sqM); Potassium 3.7 mmol/L (3.5-5.1); Sodium 136 mmol/L (137-145)
[2025-03-14 07:33] VITALS: BP 109/66; TEMP 98.2
[2025-03-14 09:43] LABS: Basophils # (A) 0.08 X 10*3/uL (0.00-0.10); Basophils % (A) 1.3 %; Eosinophils # (A) 0.77 X 10*3/uL (0.04-0.35); Eosinophils % (A) 12.6 %; HGB 10.3 g/dL (13.0-17.0); Lymphocytes # (A) 0.52 X 10*3/uL (0.90-5.00); Lymphocytes % (A) 8.5 %; MCH 24.9 pg (27.0-32.0); MCHC 29.4 g/dL (32.0-37.0); MCV 84.7 FL (80.0-97.0); Monocytes % (A) 13.1 %; NRBC Per 100 WBC 0 X 10*3/uL (0.00-0.01); Neutrophils # (A) 3.94 X 10*3/uL (1.80-7.70); Neutrophils % (A) 64.2 %; Platelet Count 219 X 10*3/uL (140-440); RBC 4.13 X 10*6/uL (4.40-5.60); RDW 20.5 % (11.5-14.5); WBC 6.13 X 10*3/uL (4.50-10.00)
[2025-03-14] MEDS: FUROSEMIDE 10 MG/ML 4 ML VIAL IV SCH (10:19)
[2025-03-14] MEDS ORDERED: Magnesium Replacement Protocol 1 EACH MISC MISCELLANE PRN (11:11)
[2025-03-14] MEDS: MAGNESIUM SULFATE-D5W PMX 1 GM in DEXTROSE/WATER 1 100ML.BAG IVPB ONE (11:49)
[2025-03-14 12:06] VITALS: PULSE 74; RESP 22
[2025-03-14 12:06] LABS: Glucose,Whole Blood 336 mg/dL (70-110)
--- NOTE | 2025-03-14 13:03 | PN ---
PROGRESS NOTE SUBJECTIVE: Tom is a 64-year-old gentleman, who is admitted to the hospital with new onset congestive heart failure and has severe aortic stenosis, underwent a transesophageal echo and cardiac catheterization yesterday and needs aortic valve replacement. This morning, he is feeling better, but somehow the IV Lasix that he was supposed to get has not been given. I am going to resume it. OBJECTIVE: GENERAL: On exam, the patient is comfortable at rest. VITAL SIGNS: O2 saturation is 97% on 3 L. Afebrile. Heart rate is 78 beats per minute, blood pressure is 110/66, respiratory rate is 18. NECK: There is no jugular venous distention. CHEST: Reveals good air entry bilaterally. HEART: Reveals first and second heart sounds, grade 3/6 ejection systolic murmur. ABDOMEN: Soft. EXTREMITIES: Examination of the extremities reveals 1+ edema. Peripheral pulses are felt. LABORATORY DATA: Showed hemoglobin of 10.3, potassium is 3.7, creatinine is 0.8. ASSESSMENT AND PLAN: 1. Acute-onset systolic heart failure. 2. Severe aortic stenosis. I reviewed GENIE and cardiac catheterization findings. I will resume the IV Lasix. MMODL / IJN: [id number] /
--- NOTE | 2025-03-14 18:34 | P.PN ---
Subjective Progress Note Date: 03/14/25 Principal diagnosis: Reason for follow-up is scrotal cellulitis Patient is a 64-year-old male with a past medical history significant for diabetes mellitus hypertension CVA TIA atrial fibrillation heart failure presenting to the hospital for evaluation of increasing scrotal swelling as well as lower extremity swelling and was diagnosed with a scrotal cellulitis servando grimes this consultation. On today's evaluation that is 03/14/2024, patient did have a temperature of 98.2 F this morning and denies having any chills, patient is on 3 L nasal cannula oxygen and breathing comfortably no chest pain or cough, the patient did not have any nausea vomiting abdominal pain or any diarrhea, scrotal swelling has decreased, patient mention feeling better wants to go home. Patient did have a creatinine of 6.13, creatinine 0.89 Objective - Vital Signs Vital signs: Vital Signs Temp 98.2 F 03/14/25 07:32 Pulse 74 03/14/25 12:05 Resp 22 03/14/25 12:05 BP 109/66 03/14/25 07:32 Pulse Ox 93 L 03/14/25 12:05 FiO2 Intake & Output 03/13/25 03/14/25 03/14/25 18:59 06:59 18:59 Intake Total 850 1300 Output Total 700 1600 Balance 150 -300 Weight 96.6 kg Intake: IV 850 Oral 1300 Output: Urine 700 1600 Other: Voiding Method Toilet Toilet Urinal Urinal - Exam GENERAL DESCRIPTION: An elderly male lying in bed in no distress RESPIRATORY SYSTEM: Unlabored breathing , decreased breath sounds at bases HEART: S1 S2 regular rate and rhythm , ABDOMEN: Soft , no tenderness : Scrotal swelling and redness slightly decreased EXTREMITIES: 1+ edema feet - Labs CBC & Chem 7: 03/14/25 05:56 03/14/25 05:56 Labs: Abnormal Lab Results - Last 24 Hours (Table) 03/13/25 03/13/25 03/14/25 Range/Units 17:43 19:46 05:56 RBC 4.13 L (4.40-5.60) X 10*6/uL Hgb 10.3 L (13.0-17.0) g/dL Hct 35.0 L (39.6-50.0) % MCH 24.9 L (27.0-32.0) pg MCHC 29.4 L (32.0-37.0) g/dL RDW 20.5 H (11.5-14.5) % Lymphocytes # 0.52 L (0.90-5.00) X 10*3/uL Eosinophils # 0.77 H (0.04-0.35) X 10*3/uL Sodium (137-145) mmol/L BUN (9-20) mg/dL Glucose (74-99) mg/dL POC Glucose (mg/dL) 192 H 257 H (70-110) mg/dL 03/14/25 03/14/25 03/14/25 Range/Units 05:56 05:58 12:00 RBC (4.40-5.60) X 10*6/uL Hgb (13.0-17.0) g/dL Hct (39.6-50.0) % MCH (27.0-32.0) pg MCHC (32.0-37.0) g/dL RDW (11.5-14.5) % Lymphocytes # (0.90-5.00) X 10*3/uL Eosinophils # (0.04-0.35) X 10*3/uL Sodium 136 L (137-145) mmol/L BUN 39 H (9-20) mg/dL Glucose 229 H (74-99) mg/dL POC Glucose (mg/dL) 265 H 336 H (70-110) mg/dL Assessment and Plan (1) Scrotal edema Status: Acute Code(s): N50.89 - OTHER SPECIFIED DISORDERS OF THE MALE GENITAL ORGANS SNOMED Code(s): 68154749 (2) Cellulitis of scrotum Status: Acute Code(s): N49.2 - INFLAMMATORY DISORDERS OF SCROTUM SNOMED Code(s): 23285728 Plan: 1patient presented hospital with significant swelling to his scrotal area for the last 2 weeks is more likely related to fluid overload underlying congestive heart failure as the patient also have significant swelling to bilateral lower extremity there is mild erythema on the leg cellulitis less likely but not entirely excluded as the patient not running any fever or any elevated white count 2-patient is afebrile white count normal, patient insisting on going home co nsider short course of oral Keflex on discharge in addition to diuretics Dictation was produced using dragon dictation software. please excuse any grammatical, word or spelling errors. Time with Patient: Less than 30
--- NOTE | 2025-03-16 22:31 | P.DS ---
Providers Date of admission: 03/09/25 17:58 Attending physician: Estela Xioa Consults: 03/09/25 17:56 Consult Physician Routine Consulting Provider: [facility] Consult Reason/Comments: chf Do you want consulting provider notified?: Yes 03/10/25 11:28 Consult Physician Urgent Consulting Provider: Samy Denny Consult Reason/Comments: cellulitis, swelling scrotum Do you want consulting provider notified?: Yes Primary care physician: Garret Cheek Hospital Course: Final Diagnosis Bilateral scrotal edema as well as severe scrotal cellulitis, present on admission Acute on chronic congestive heart failure, systolic dysfunction with acute exacerbation Severe aortic stenosis Elevated BNP secondary to CHF exacerbation History of permanent atrial fibrillation, currently rate controlled diabetes mellitus, type I, normally wears an insulin pump, uncontrolled with hyperglycemia History of CVA History of severe aortic stenosis with moderate aortic regurgitation Moderate pulmonary hypertension History of chronic kidney disease Obesity with a BMI of 33.6 Hypertension Discharge Disposition Patient is stable for discharge home. He is on optimized medical therapy for his CHF. He will discharge on lasix daily, increased dose of farxiga 10 mg daily. He is on losartan 100 mg daily. He is on statin therapy. He is to continue course of oral keflex for 7 days and continue nystatin poweder to the groin twice daily. Follow up with cardiology and PCP. Total time taken in discharge planning greater than 35 minutes. Hospital Course This is a 64-year-old male who was recently admitted with bilateral scrotal edema being closely monitored with infectious disease and cardiology following. Patient also admitted for CHF exacerbation. Patient was maintained on IV Lasix because of the CHF and scrotal edema. Continue wound care per ID recommendations and nystatin in the groin area and elevating scrotum. Patient is afebrile with no reported chest pain or shortness of breath at this time. Patient underwent GENIE and cardioversion. Findings of Severe aortic stenosis with an aortic valve area of 1.06 cm and indexed area of 0.51 cm/m. The mean gradient across the aortic valve was underestimated (30 mmHg) likely because of cardiomyopathy with EF between 40 to 45%. Severe pulmonary hypertension secondary to WHO group 2 pulmonary hypertension. Elevated biventricular filling pressures. Mild to moderate nonobstructive coronary artery disease. GENIE reveals; Impaired LV function with EF between 40 to 45% and global hypokinesia. Heavily calcified bicuspid aortic valve with fusion of the right and left coronary cusp with no evidence of aortic insufficiency and evidence of severe aortic stenosis with a mean gradient of 40 mmHg and mildly dilated ascending aorta. Mild to moderate mitral regurgitation. He was monitored overnight. Currently no complaints of chest pain or shortness of breath. The scrotal edema and cellulitis have improved. He is advised to follow up post discharge with cardiology and the valve clinic. Review of systems: Constitutional: No reports of fatigue, no fever, or chills Cardiovascular: No reports of chest pain or palpitations Respiratory: No reports of shortness of breath or cough GI: No reports of nausea, no reports of vomiting, no diarrhea : No reports of dysuria or retention Neurovascular: reports of generalized weakness All medications have been reviewed PHYSICAL EXAMINATION: GENERAL: The patient is alert and oriented x 2-3, fatigues easily, but easily arousable. Well developed, elderly appearing, obese HEENT: Pupils are round and equally reacting to light. EOMI. no scleral icterus. No conjunctival pallor. Normocephalic, atraumatic. No pharyngeal erythema. No thyromegaly. CARDIOVASCULAR: S1 and S2 muffled PULMONARY: diminished breath sounds bilaterally with no wheezing or rhonchi noted. ABDOMEN: soft. Nontender on exam. obese. non-distended, normoactive bowel sounds. No palpable organomegaly. Scrotal swelling with surrounding redness, skin intact is swelling and redness is significantly improved MUSCULOSKELETAL: No joint swelling or deformity. EXTREMITIES: No cyanosis, clubbing, or pedal edema. NEUROLOGICAL: Gross neurological examination did not reveal any focal deficits. Diffuse weakness SKIN: No rashes. Please see medication reconciliation for a list of current medications. Thank you for allowing us to participate in the care of this patient. The impression and plan of care has been dictated by Latonya Abbott Nurse Practitioner as directed. Dr. Hasmukh MD I have performed a history and physical examination and medical decision making of this patient, discussed the same with the dictator, and agree with the dictators assessment and plan as written, documented as a scribe. Based on total visit time, I have performed more than 50% of this visit. Patient Condition at Discharge: Stable Plan - Discharge Summary New Discharge Prescriptions: New Cephalexin [Keflex] 500 mg PO Q8HR 7 Days #21 cap Acetaminophen Tab [Tylenol] 650 mg PO Q6HR PRN tab PRN Reason: Fever And/ Or Pain Fluconazole [Diflucan] 100 mg PO DAILY 7 Days #7 tab Dapagliflozin Propanediol [Farxiga] 10 mg PO DAILY #30 tab Nystatin 100,000 Unit/gm Powd [Mycostatin Powder] 1 applic TOPICAL TID #1 each Furosemide [Lasix] 40 mg PO DAILY #30 tablet Continue Atorvastatin [Lipitor] 80 mg PO DAILY Rivaroxaban [Xarelto] 20 mg PO DAILY Losartan Potassium 100 mg PO DAILY FLUoxetine HCL [PROzac] 20 mg PO DAILY Ferrous Sulfate [Iron (65 MG Elemental)] 325 mg PO DAILY rOPINIRole HCL [Requip] 12 mg PO DIRECTED Furosemide [Lasix] 20 mg PO DAILY Fenofibrate [Lofibra] 160 mg PO DAILY Insulin Aspart (For Pump) [NovoLOG (For Pump)] 0.01 unit SQ-PUMP CONTINUOUS Dextroamphetamine/Amphetamine [Adderall] 10 mg PO DAILY Cenegermin-Bkbj [Oxervate] 1 drop RIGHT EYE DIRECTED Discontinued amLODIPine [Norvasc] 10 mg PO DAILY Dapagliflozin Propanediol [Farxiga] 5 mg PO DAILY Discharge Medication List Atorvastatin [Lipitor] 80 mg PO DAILY 03/09/25 [History] Cenegermin-Bkbj [Oxervate] 1 drop RIGHT EYE DIRECTED 03/09/25 [History] Dextroamphetamine/Amphetamine [Adderall] 10 mg PO DAILY 03/09/25 [History] FLUoxetine HCL [PROzac] 20 mg PO DAILY 03/09/25 [History] Fenofibrate [Lofibra] 160 mg PO DAILY 03/09/25 [History] Ferrous Sulfate [Iron (65 MG Elemental)] 325 mg PO DAILY 03/09/25 [History] Furosemide [Lasix] 20 mg PO DAILY 03/09/25 [History] Insulin Aspart (For Pump) [NovoLOG (For Pump)] 0.01 unit SQ-PUMP CONTINUOUS 03/09/25 [History] Losartan Potassium 100 mg PO DAILY 03/09/25 [History] Rivaroxaban [Xarelto] 20 mg PO DAILY 03/09/25 [History] rOPINIRole HCL [Requip] 12 mg PO DIRECTED 03/09/25 [History] Acetaminophen Tab [Tylenol] 650 mg PO Q6HR PRN tab 03/13/25 [Rx] Cephalexin [Keflex] 500 mg PO Q8HR 7 Days #21 cap 03/13/25 [Rx] Dapagliflozin Propanediol [Farxiga] 10 mg PO DAILY #30 tab 03/13/25 [Rx] Fluconazole [Diflucan] 100 mg PO DAILY 7 Days #7 tab 03/13/25 [Rx] Nystatin 100,000 Unit/gm Powd [Mycostatin Powder] 1 applic TOPICAL TID #1 each 03/13/25 [Rx] Furosemide [Lasix] 40 mg PO DAILY #30 tablet 03/14/25 [Rx] Follow up Appointment(s)/Referral(s): Nikita Lopez MD [STAFF PHYSICIAN] - 1 Week Garret Cheek MD [Primary Care Provider] - 1-2 days Samy Denny MD [STAFF PHYSICIAN] - 1 Week Ambulatory/Diagnostic Orders: Basic Metabolic Panel [LAB.AMB] Time Frame: 3 Days, Location: None Selected Activity/Diet/Wound Care/Special Instructions: Activity limited until follow-up Follow-up with primary care provider on discharge Follow-up with cardiology outpatient Follow-up with infectious disease outpatient Continue antibiotics until finished Continue with nystatin powder on groin area twice daily and keep the area dry for moisture Elevate scrotum to improve swelling Continue taking medications as prescribed Continue oral lasix 40 mg daily Discharge Disposition: HOME SELF-CARE
== END 2025-03-14 14:52 | disposition home or self-care (01) | DRG 286 ==
LOC: EC 14:09 → 6NMEDSUR 17:57 → OBSVTOIN 17:58 → 6NMEDSUR 19:06
PROVIDERS: ADMIT Hospitalist; ATTEND Hospitalist
PROC: 4A023N8 Measurement of Cardiac Sampling and Pressure, Bilateral, Percutaneous Approach (ICD-10-PCS; 2025-03-13)
PROC: B2111ZZ Fluoroscopy of Multiple Coronary Arteries using Low Osmolar Contrast (ICD-10-PCS; 2025-03-13)
PROC: B24BZZ4 Ultrasonography of Heart with Aorta, Transesophageal (ICD-10-PCS; principal; 2025-03-13 14:00)
DX: I13.0 Hypertensive heart and chronic kidney disease with heart failure and stage 1 through stage 4 chronic kidney disease, or unspecified chronic kidney disease (principal); I50.23 Acute on chronic systolic (congestive) heart failure; I27.22 Pulmonary hypertension due to left heart disease; E10.22 Type 1 diabetes mellitus with diabetic chronic kidney disease; E66.9 Obesity, unspecified; Q23.81 Bicuspid aortic valve; N18.9 Chronic kidney disease, unspecified; I48.21 Permanent atrial fibrillation; E10.65 Type 1 diabetes mellitus with hyperglycemia; N43.3 Hydrocele, unspecified; N49.2 Inflammatory disorders of scrotum; I35.2 Nonrheumatic aortic (valve) stenosis with insufficiency; Z68.33 Body mass index [BMI] 33.0-33.9, adult; E78.5 Hyperlipidemia, unspecified; I25.10 Atherosclerotic heart disease of native coronary artery without angina pectoris; Z79.4 Long term (current) use of insulin; I34.0 Nonrheumatic mitral (valve) insufficiency; Z96.41 Presence of insulin pump (external) (internal); Z86.73 Personal history of transient ischemic attack (TIA), and cerebral infarction without residual deficits; Z88.8 Allergy status to other drugs, medicaments and biological substances
CPT/HCPCS: 36415; 71046; 76870; 80048; 80053; 81003; 83036; 83735; 83880; 85025; 85610; 85730; 93005; 93306; 93312; 93320; 93325; 93975; 94760; 96374; 99285

== ENCOUNTER → 2025-03-09 | Outpatient (CLI) | payer MEDICARE ==
--- NOTE | 2025-03-09 12:16 | CT ---
EXAMINATION TYPE: CT elbow RT wo con CT DLP: 357 mGycm, Automated exposure control for dose reduction was used. DATE OF EXAM: 03/09/2025 12:04 PM COMPARISON: Right forearm radiograph 01/29/2025 CLINICAL INDICATION:Male, 64 years old with history of S42.494A OTH NONDISP FX OF LOWER END OF RIGHT PHIL; PHH, RT ELBOW FX, DISTAL HUMERUS. TECHNIQUE: Axial images were obtained of the right elbow without the use of IV contrast. Additional coronal and sagittal reformatted images and soft tissue and bone window were obtained for review. 3-D reconstruction was created on a separate workstation. FINDINGS: Redemonstration of displaced comminuted distal humeral supracondylar fracture. Surrounding callus formation identified. Fracture lines are present. No dislocation. There is surrounding soft ti ssue edema without distinct joint effusion. Additional tiny avulsion fracture of the radial head. IMPRESSION: 1. Redemonstration of displaced comminuted nonunion distal humerus fracture with surrounding callus formation. 2. Remote tiny avulsion fracture of the radial head. [facility], , 03/09/2025 12:13 PM
== END | disposition home or self-care (01) ==
LOC: RADCTMAIN 11:07
PROVIDERS: ATTEND Orthopaedic Surgery Hand Surgery
DX: S42.494A Other nondisplaced fracture of lower end of right humerus, initial encounter for closed fracture (principal); S42.401K Unspecified fracture of lower end of right humerus, subsequent encounter for fracture with nonunion

== ENCOUNTER → 2025-03-09 | Outpatient (CLI) | payer MEDICARE ==
[2025-03-09 21:57] LABS: BUN/Creat Ratio 36.59 Ratio (12.00-20.00); Blood Urea Nitrogen 62.2 mg/dL (9.0-27.0); Calcium 9.5 mg/dL (8.7-10.3); Chloride 104 mmol/L (96-109); Glucose 101 mg/dL (70-110); Potassium 4.1 mmol/L (3.5-5.5); Sodium 141 mmol/L (135-145)
== END | disposition home or self-care (01) ==
LOC: LABWHC1 12:16
PROVIDERS: ATTEND Internal Medicine
DX: N18.32 Chronic kidney disease, stage 3b (principal)
CPT/HCPCS: 36415; 80048

== ENCOUNTER → 2025-03-20 | Outpatient (CLI) | payer MEDICARE ==
--- NOTE | 2025-03-20 13:56 | US ---
EXAMINATION TYPE: US kidneys/renal and bladder DATE OF EXAM: 03/20/2025 COMPARISON: NONE CLINICAL INDICATION: Male, 64 years old with history of N18.32 CKD; Hx HTN and DM; Patient denies any other signs, symptoms, or relevant history TECHNIQUE: Grayscale imaging of the bilateral kidneys and urinary bladder: FINDINGS: EXAM MEASUREMENTS: Right Kidney: 13.2 x 6.5 x 5.1 cm Left Kidney: 9.4 x 5.8 x 5.8 cm Post Void Residual Volume: NA mL Right Kidney: Multiple simple cysts, largest = 2.8 x 2.4 x 2.3 cm Left Kidney: ? Stone seen upper pole = 1.9 x 1.3 x 1.8 cm Bladder: WNL Bilateral Jets seen: Not seen within a five minute period Normal Post Void Residual: NA There is no evidence for hydronephrosis at this point in time. No nephrolithiasis is seen. No mabel s are identified. The urinary bladder is anechoic. IMPRESSION: 1. No evidence for obstructive uropathy. 2. Left renal nonobstructing calculus. 3. Right renal simple appearing cyst. [facility], , 03/20/2025 1:53 PM
== END | disposition home or self-care (01) ==
LOC: RADUSWWP 12:46
PROVIDERS: ATTEND Internal Medicine
DX: N20.0 Calculus of kidney (principal); N18.32 Chronic kidney disease, stage 3b; N28.1 Cyst of kidney, acquired
CPT/HCPCS: 76770

== ENCOUNTER 2025-04-14 20:15 | Inpatient (IN) | payer MEDICARE ==
[2025-04-14 22:17] LABS: Basophils # (A) 0.03 10*3/uL (0.00-0.10); Basophils % (A) 0.7 %; Eosinophils # (A) 0.20 10*3/uL (0.04-0.35); Eosinophils % (A) 4.7 %; HCT 28.3 % (39.6-50.0); HGB 9.2 g/dL (13.0-17.0); Lymphocytes # (A) 0.81 10*3/uL (0.90-5.00); Lymphocytes % (A) 18.8 %; MCH 26.1 pg (27.0-32.0); MCHC 32.5 g/dL (32.0-37.0); MCV 80.4 fL (80.0-97.0); Monocytes # (A) 0.62 10*3/uL (0.20-1.00); Monocytes % (A) 14.4 %; Neutrophils # (A) 2.63 10*3/uL (1.80-7.70); Neutrophils % (A) 61.2 %; Platelet Count 162 10*3/uL (140-440); RBC 3.52 10*6/uL (4.40-5.60); RDW 17.4 % (11.5-14.5); WBC 4.30 10*3/uL (4.50-10.00)
[2025-04-14 22:27] LABS: ALT 15 U/L (4-49); AST 30 U/L (17-59); African American GFR (CKD) 40 (>60 ml/min/1.73 sqM); Albumin 3.9 g/dL (3.5-5.0); Alkaline Phosphatase 79 U/L (38-126); Anion Gap 14 mmol/L; Calcium 9.9 mg/dL (8.4-10.2); Carbon Dioxide 24 mmol/L (22-30); Chloride 97 mmol/L (98-107); Magnesium 2.1 mg/dL (1.6-2.3); Non-African American GFR(CKD) 35 (>60 ml/min/1.73 sqM); Potassium 4.0 mmol/L (3.5-5.1); Sodium 135 mmol/L (137-145); Total Protein 6.4 g/dL (6.3-8.2)
[2025-04-14 22:37] LABS: Blood Urea Nitrogen 118 mg/dL (9-20); Glucose 46 mg/dL (74-99)
[2025-04-14 22:51] LABS: Glucose,Whole Blood 48 mg/dL (70-110)
[2025-04-14] MEDS: DEXTROSE 50% SYRINGE 50 ML IVP STA (22:56)
[2025-04-14 23:18] LABS: Glucose,Whole Blood 159 mg/dL (70-110)
[2025-04-14] MEDS: SODIUM CHLORIDE 0.9% 1,000 ML IV ONE (23:40)
--- NOTE | 2025-04-14 23:50 | ED ---
General Adult HPI - General Chief complaint: Recheck/Abnormal Lab/Rx Stated complaint: Abnormal Labs Time Seen by Provider: 04/14/25 21:29 Source: patient, RN notes reviewed Mode of arrival: ambulatory Limitations: no limitations - History of Present Illness Initial comments: 65-year-old male presents to the emergency department sent in by his primary c are provider for abnormal laboratory studies. The patient is unsure what study was abnormal. He notes that "something was 120" and was told by his primary care provider that he may be dehydrated. He denies any symptoms at this time. He does note that he is on Lasix 60 mg daily. He endorses mildly decreased urine output. Denies any recent illness. Denies any fever or chills. Denies any pain. - Related Data Home Medications Medication Instructions Recorded Confirmed Atorvastatin [Lipitor] 80 mg PO DAILY 03/09/25 04/15/25 Dextroamphetamine/Amphetamine 10 mg PO DAILY 03/09/25 04/15/25 [Adderall] FLUoxetine HCL [PROzac] 20 mg PO DAILY 03/09/25 04/15/25 Fenofibrate [Lofibra] 160 mg PO DAILY 03/09/25 04/15/25 Ferrous Sulfate [Iron (65 MG 325 mg PO DAILY 03/09/25 04/15/25 Elemental)] Insulin Aspart (For Pump) [NovoLOG 0.01 unit SQ-PUMP CONTINUOUS 03/09/25 04/15/25 (For Pump)] Rivaroxaban [Xarelto] 20 mg PO HS 03/09/25 04/15/25 Ergocalciferol [Vitamin D2 (1250 1,250 mcg PO SA 04/15/25 04/15/25 Mcg = 75065 Iu)] Previous Rx's Medication Instructions Recorded Dapagliflozin Propanediol [Farxiga] 10 mg PO DAILY #30 tab 03/13/25 Allergies Allergy/AdvReac Type Severity Reaction Status Date / Time lisinopril AdvReac Cough Verified 04/15/25 08:00 Review of Systems ROS Statement: Those systems with pertinent positive or pertinent negative responses have been documented in the HPI. ROS Other: All systems not noted in ROS Statement are negative. Past Medical History Past Medical History: Atrial Fibrillation, Heart Failure, CVA/TIA, Diabetes Mellitus, Hypertension History of Any Multi-Drug Resistant Organisms: None Reported Past Surgical History: No Surgical Hx Reported Smoking Status: Never smoker Past Alcohol Use History: Occasional Past Drug Use History: None Reported General Exam Limitations: no limitations General appearance: alert, in no apparent distress Head exam: Present: atraumatic, normocephalic, normal inspection Eye exam: Present: normal appearance, PERRL, EOMI. Absent: scleral icterus, conjunctival injection, periorbital swelling ENT exam: Present: normal exam, mucous membranes moist Respiratory exam: Present: normal lung sounds bilaterally. Absent: respiratory distress, wheezes, rales, rhonchi, stridor Cardiovascular Exam: Present: regular rate, normal rhythm, normal heart sounds. Absent: systolic murmur, diastolic murmur, rubs, gallop, clicks GI/Abdominal exam: Present: soft. Absent: distended, tenderness, guarding, rebound, rigid Extremities exam: Present: normal inspection, full ROM, normal capillary refill. Absent: tenderness, pedal edema, joint swelling, calf tenderness Back exam: Present: normal inspection Neurological exam: Present: alert, oriented X3 Psychiatric exam: Present: normal affect, normal mood Skin exam: Present: warm, dry, intact, normal color. Absent: rash Course Vital Signs 04/14/25 04/14/25 04/15/25 20:23 23:18 00:14 Temperature 97.4 F L 97.5 F L Pulse Rate 48 L 55 L Pulse Rate [ 54 L Pulse Oximetery ] Respiratory 18 16 16 Rate Blood Pressure 98/61 109/44 Blood Pressure 105/60 [Left Arm] O2 Sat by Pulse 99 100 100 Oximetry 04/15/25 01:05 Temperature 97.6 F Pulse Rate 54 L Pulse Rate [ Pulse Oximetery ] Respiratory 16 Rate Blood Pressure 103/47 Blood Pressure [Left Arm] O2 Sat by Pulse 99 Oximetry Procedures - [place] Protocol (Time Out) Nurse: Timothy Gomes Medical Decision Making - Medical Decision Making Was pt. sent in by a medical professional or institution (, PA, [employer], urgent care, hospital, or penitentiary...) When possible be specific @ -Sent in by PCP Did you speak to anyone other than the patient for history (EMS, parent, family, police, friend...)? What history was obtained from this source @ -No Did you review nursing and triage notes (agree or disagree)? Why? @ -I reviewed and agree with nursing and triage notes Were old charts reviewed (outside hosp., previous admission, EMS record, old EKG, old radiological studies, urgent care reports/EKG's, penitentiary records)? Report findings @ -No old charts were reviewed Differential Diagnosis (chest pain, altered mental status, abdominal pain women, abdominal pain men, vaginal bleeding, weakness, fever, dyspnea, syncope, headache, dizziness, GI bleed, back pain, seizure, CVA, palpatations, mental health, musculoskeletal)? @ -Differential Weakness: Hypoglycemia, shock, sepsis, hyponatremia, anemia, infection, AR, ETOH, adverse medicine reaction, overdose, stroke, this is not meant to be an all-inclusive list. EKG interpreted by me (3pts min.). @ -EKG@2204 shows sinus bradycardia with first-degree AV block rate of 52, AL 334, QRS 110, QTQTc 39284 X-rays interpreted by me (1pt min.). @ -None done CT interpreted by me (1pt min.). @ -None done U/S interpreted by me (1pt. min.). @ -None done What testing was considered but not performed or refused? (CT, X-rays, U/S, labs)? Why? @ -None What meds were considered but not given or refused? Why? @ -None Did you discuss the management of the patient with other professionals (professionals i.e. , PA, [employer], lab, RT, psych nurse, social work associate, fact checker, teacher, field crop technical officer, rehabilitation caseworker)? Give summary @ -I discussed the case with [facility], Dr. Salazar who is accepting of the admission, recommended nephrology consultation Was smoking cessation discussed for >3mins.? @ -No Was critical care preformed (if so, how long)? @ -No Were there social determinants of health that impacted care today? How? (Home lessness, low income, unemployed, alcoholism, drug addiction, transportation, low edu. Level, literacy, decrease access to med. care, long-term, rehab)? @ -No Was there de-escalation of care discussed even if they declined (Discuss DNR or withdrawal of care, Hospice)? DNR status @ -No What co-morbidities impacted this encounter? (DM, HTN, Smoking, COPD, CAD, Cancer, CVA, ARF, Chemo, Hep., AIDS, mental health diagnosis, sleep apnea, morbid obesity)? @ -None Was patient admitted / discharged? Hospital course, mention meds given and route, prescriptions, significant lab abnormalities, going to OR and other pertinent info. @ -Admitted. Patient presented the emergency department sent in by his primary care provider for elevated BUN.Laboratory studies obtained revealing no significant leukocytosis, hemoglobin 9.2; CMP reveals a BUN of 118, creatinine 1.96, patient hypoglycemic. He was advised to turn off his insulin pump. He was provided an amp of dextrose. Patient will be admitted. Case was discussed with [facility] was accepting of the admission. Nephrology was consulted. Patient understanding agreeable plan. Patient stable at time of discharge. Case discussed with Dr Dow Undiagnosed new problem with uncertain prognosis? @ -No Drug Therapy requiring intensive monitoring for toxicity (Heparin, Nitro, Insulin, Cardizem)? @ -No Were any procedures done? @ -No Diagnosis/symptom? @ -Azotemia Acute, or Chronic, or Acute on Chronic? @ -Acute Uncomplicated (without systemic symptoms) or Complicated (systemic symptoms)? @ -Uncomplicated Side effects of treatment? @ -No Exacerbation, Progression, or Severe Exacerbation? @ -No Poses a threat to life or bodily function? How? (Chest pain, USA, AR, pneumonia, PE, COPD, DKA, ARF, appy, cholecystitis, CVA, Diverticulitis, Homicidal, Suicidal, threat to staff... and all critical care pts) @ -No - Lab Data Result diagrams: 04/16/25 06:04 04/16/25 06:04 Lab Results 04/14/25 04/14/25 04/14/25 Range/Units 21:54 21:54 22:49 WBC 4.30 L (4.50-10.00) 10*3/uL RBC 3.52 L (4.40-5.60) 10*6/uL Hgb 9.2 L (13.0-17.0) g/dL Hct 28.3 L (39.6-50.0) % MCV 80.4 (80.0-97.0) fL MCH 26.1 L (27.0-32.0) pg MCHC 32.5 (32.0-37.0) g/dL Plt Count 162 (140-440) 10*3/uL MPV 9.7 (9.5-12.2) fL Immature Gran % (Auto) 0.2 % Neutrophils % 61.2 % Lymphocytes % 18.8 % Monocytes % 14.4 % Eosinophils % 4.7 % Basophils % 0.7 % Immature Gran # 0.01 (0.00-0.04) 10*3/uL Neutrophils # 2.63 (1.80-7.70) 10*3/uL Lymphocytes # 0.81 L (0.90-5.00) 10*3/uL Monocytes # 0.62 (0.20-1.00) 10*3/uL Eosinophils # 0.20 (0.04-0.35) 10*3/uL Basophils # 0.03 (0.00-0.10) 10*3/uL Sodium 135 L (137-145) mmol/L Potassium 4.0 (3.5-5.1) mmol/L Chloride 97 L (98-107) mmol/L Carbon Dioxide 24 (22-30) mmol/L Anion Gap 14 mmol/L BUN 118 H* (9-20) mg/dL Creatinine 1.96 H (0.66-1.25) mg/dL Est GFR (CKD-EPI)AfAm 40 (>60 ml/min/1.73 sqM) Est GFR (CKD-EPI)NonAf 35 (>60 ml/min/1.73 sqM) Glucose 46 L* (74-99) mg/dL POC Glucose (mg/dL) 48 L* (70-110) mg/dL POC Glu Plumbing And Heating Mechanic ID Gopi Gonzalez Calcium 9.9 (8.4-10.2) mg/dL Magnesium 2.1 (1.6-2.3) mg/dL Total Bilirubin 0.7 (0.2-1.3) mg/dL AST 30 (17-59) U/L ALT 15 (4-49) U/L Alkaline Phosphatase 79 (38-126) U/L Total Protein 6.4 (6.3-8.2) g/dL Albumin 3.9 (3.5-5.0) g/dL 04/14/25 Range/Units 23:17 WBC (4.50-10.00) 10*3/uL RBC (4.40-5.60) 10*6/uL Hgb (13.0-17.0) g/dL Hct (39.6-50.0) % MCV (80.0-97.0) fL MCH (27.0-32.0) pg MCHC (32.0-37.0) g/dL Plt Count (140-440) 10*3/uL MPV (9.5-12.2) fL Immature Gran % (Auto) % Neutrophils % % Lymphocytes % % Monocytes % % Eosinophils % % Basophils % % Immature Gran # (0.00-0.04) 10*3/uL Neutrophils # (1.80-7.70) 10*3/uL Lymphocytes # (0.90-5.00) 10*3/uL Monocytes # (0.20-1.00) 10*3/uL Eosinophils # (0.04-0.35) 10*3/uL Basophils # (0.00-0.10) 10*3/uL Sodium (137-145) mmol/L Potassium (3.5-5.1) mmol/L Chloride (98-107) mmol/L Carbon Dioxide (22-30) mmol/L Anion Gap mmol/L BUN (9-20) mg/dL Creatinine (0.66-1.25) mg/dL Est GFR (CKD-EPI)AfAm (>60 ml/min/1.73 sqM) Est GFR (CKD-EPI)NonAf (>60 ml/min/1.73 sqM) Glucose (74-99) mg/dL POC Glucose (mg/dL) 159 H (70-110) mg/dL POC Glu Plumbing And Heating Mechanic ID Horvath Ronit Calcium (8.4-10.2) mg/dL Magnesium (1.6-2.3) mg/dL Total Bilirubin (0.2-1.3) mg/dL AST (17-59) U/L ALT (4-49) U/L Alkaline Phosphatase (38-126) U/L Total Protein (6.3-8.2) g/dL Albumin (3.5-5.0) g/dL Disposition Clinical Impression: Elevated BUN, Dehydration Disposition: ADMITTED IP TO THIS HOSP Condition: Stable Is patient prescribed a controlled substance at d/c from ED?: No
[2025-04-14] MEDS ORDERED: HYDROmorphone 0.5 MG/0.5 ML SYRINGE IVP PRN (23:59)
[2025-04-14] MEDS ORDERED: NALOXONE 0.4 MG/ML 1 ML VIAL IV PRN (23:59)
[2025-04-15] MEDS ORDERED: DEXTROSE 50% SYRINGE 50 ML IVP PRN ×2 (00:01)
[2025-04-15 00:05] LABS: Glucose,Whole Blood 165 mg/dL (70-110)
[2025-04-15] MEDS: SODIUM CHLORIDE 0.9% 1,000 ML IV SCH (01:04)
[2025-04-15] MEDS: ACETAMINOPHEN TAB 325 MG TAB PO PRN (01:50)
[2025-04-15 06:02] LABS: Glucose,Whole Blood 122 mg/dL (70-110)
[2025-04-15] MEDS: INSULIN LISPRO (HumaLOG) 100 UNIT/ML 10 mL VL SQ SCH (06:04)
[2025-04-15 07:44] LABS: African American GFR (CKD) 44 (>60 ml/min/1.73 sqM); Anion Gap 14 mmol/L; Calcium 9.5 mg/dL (8.4-10.2); Carbon Dioxide 20 mmol/L (22-30); Chloride 101 mmol/L (98-107); Glucose 108 mg/dL (74-99); Magnesium 2.0 mg/dL (1.6-2.3); Non-African American GFR(CKD) 38 (>60 ml/min/1.73 sqM); Potassium 4.2 mmol/L (3.5-5.1); Sodium 135 mmol/L (137-145)
[2025-04-15 08:07] LABS: Blood Urea Nitrogen 111 mg/dL (9-20)
--- NOTE | 2025-04-15 10:19 | P.NPCON ---
History of Present Illness - Reason for Consult acute renal failure - History of Present Illness Reason for consultation: Acute kidney injury History of present illness: Patient is a 65-year-old male seen in renal consultation for acute kidney injury. Patient's baseline creatinine is near 1 from March 2025 and was elevated at 1.96 on admission. Patient states he had blood work done for preoperative clearance for elbow surgery and was advised to go to the hospital due to elevated BUN. Patient's BUN on admission was 118 and creatinine 1.96. Both are trending down. He is currently receiving IV fluids with normal saline running at 75 cc an hour. He did receive a liter bolus of normal saline in the ER. Patient states his oral intake has been good. He denies any vomiting or diarrhea. He does have longstanding history of diabetes. Denies history of coronary artery disease. Denies use of nonsteroidals. No gross hematuria or dysuria. He was taking Lasix as well as SGLT2 inhibitor at home which are both currently held. He denies any recent use of steroids. Denies any active bleeding. Vital signs are stable. General: No acute distress. HEENT: Head exam is unremarkable. LUNGS: No audible rhonchi or wheezes. HEART: Rate and Rhythm are regular. ABDOMEN: Nontender. EXTREMITITES: No edema. Past Medical History Past Medical History: Atrial Fibrillation, Heart Failure, CVA/TIA, Diabetes Mellitus, Hypertension Additional Past Medical History / Comment(s): Restless leg syndrome, A Fib on Xarelto History of Any Multi-Drug Resistant Organisms: None Reported Past Surgical History: No Surgical Hx Reported Smoking Status: Never smoker Past Alcohol Use History: Occasional Past Drug Use History: None Reported Medications and Allergies Home Medications Medication Instructions Recorded Confirmed Type Atorvastatin [Lipitor] 80 mg PO DAILY 03/09/25 04/15/25 History Dextroamphetamine/Amphetamine 10 mg PO DAILY 03/09/25 04/15/25 History [Adderall] FLUoxetine HCL [PROzac] 20 mg PO DAILY 03/09/25 04/15/25 History Fenofibrate [Lofibra] 160 mg PO DAILY 03/09/25 04/15/25 History Ferrous Sulfate [Iron (65 MG 325 mg PO DAILY 03/09/25 04/15/25 History Elemental)] Insulin Aspart (For Pump) [NovoLOG 0.01 unit SQ-PUMP CONTINUOUS 03/09/25 04/15/25 History (For Pump)] Losartan Potassium 100 mg PO DAILY 03/09/25 04/15/25 History Rivaroxaban [Xarelto] 20 mg PO HS 03/09/25 04/15/25 History Acetaminophen Tab [Tylenol] 650 mg PO Q6HR PRN tab 03/13/25 04/15/25 Rx Dapagliflozin Propanediol [Farxiga] 10 mg PO DAILY #30 tab 03/13/25 04/15/25 Rx Furosemide [Lasix] 40 mg PO DAILY #30 tablet 03/14/25 04/15/25 Rx Ergocalciferol [Vitamin D2 (1250 1,250 mcg PO SA 04/15/25 04/15/25 History Mcg = 44925 Iu)] Allergies Allergy/AdvReac Type Severity Reaction Status Date / Time lisinopril AdvReac Cough Verified 04/15/25 08:00 Physical Exam Vitals: Vital Signs Temp Pulse Pulse Resp BP BP Pulse Ox 04/15/25 08:22 85 109/61 04/15/25 07:04 97.5 F L 54 L 18 87/49 97 04/15/25 01:34 54 L 16 04/15/25 01:05 97.6 F 54 L 16 103/47 99 04/15/25 00:14 97.5 F L 54 L 16 105/60 100 04/14/25 23:18 55 L 16 109/44 100 04/14/25 20:23 97.4 F L 48 L 18 98/61 99 Intake and Output 04/14/25 04/15/25 04/15/25 22:59 06:59 14:59 Other: Voiding Method Toilet # Voids 1 1 # Bowel Movements 1 Weight 88.904 kg 88.904 kg Results - Lab Results Most recent lab results Calcium 9.5 mg/dL (8.4-10.2) 04/15/25 06:57 Magnesium 2.0 mg/dL (1.6-2.3) 04/15/25 06:57 04/14/25 21:54 04/15/25 06:57 Assessment and Plan Plan: Assessment: 1. Acute kidney injury secondary to ATN secondary to hypovolemia further worse karen with the use of diuretic, losartan and SGLT2 inhibitor. Creatinine 1.96 on admission and is 1.8 today. Baseline creatinine near 1 from March 2025. Kidney ultrasound from March 2025 showed no evidence of hydronephrosis. 2. Metabolic acidosis secondary to acute kidney injury and IV fluids. 3. Anemia. Rule out iron deficiency. 4. Diabetes mellitus. 5. Chronic systolic CHF ejection fraction of 45 to 50% with moderate pulmonary hypertension, severe aortic stenosis, moderate aortic regurgitation and mild to moderate mitral regurgitation. Plan: Maintain IV fluids. Continue to hold diuretics and Farxiga. Continue to hold losartan. Check UA. Avoid nephrotoxins. Continue to monitor renal function and urine output. Check iron studies. Thank you for the consultation. I will continue to follow the patient with you during his hospital stay.
--- NOTE | 2025-04-15 10:37 | US ---
EXAMINATION TYPE: US kidneys/renal and bladder DATE OF EXAM: 04/15/2025 COMPARISON: 03/20/2025 CLINICAL INDICATION: Male, 65 years old with history of acute kidney injury TECHNIQUE: Grayscale imag ing of the bilateral kidneys and urinary bladder: FINDINGS: EXAM MEASUREMENTS: Right Kidney: 11.5x5.3x7.4 cm Left Kidney: 10.6x6.4x5.5 cm Through Operator notes: slightly limited exam due to overlying gas Right Kidney: Multiple anechoic areas seen, Largest: 1.9x1.9x1.9cm ?echogenic foci:0.5cm Left Kidney: Echogenic foci again seen: 1.2cm. No hydronephrosis. Bladder: wnl Bilateral Jets seen: Yes, limited IMPRESSION: 1. A few right-sided renal cortical cysts measuring up to 1.9 cm. Nonobstructive 5 mm right renal sto ne. 2. Nonobstructive 1.2 cm left renal stone. 3. No hydronephrosis on either side. [facility], Workstation: [employer], 04/15/2025 10:35 AM
[2025-04-15 10:54] LABS: Creatine Kinase 169.0 U/L (55-170)
[2025-04-15] MEDS: FENOFIBRATE 160 MG TAB PO SCH (11:04)
[2025-04-15 11:41] LABS: Bilirubin,Urine Negative (Negative); Blood,Urine Trace (Negative); Color,Urine Colorless; Glucose,Urine (UA) 3+ (Negative); Ketones,Urine Negative (Negative); Leukocyte Esterase,Urine Negative (Negative); Nitrite,Urine Negative (Negative); PH, Urine 5.0 (5.0-8.0); Protein,Urine Negative (Negative); RBC,Urine 5 /hpf (0-5); Specific Gravity,Urine 1.012 (1.001-1.035); Squamous Epithelial Cell,Urine <1 /hpf (0-4); Urobilinogen,Urine <2.0 mg/dL (<2.0); WBC,Urine 1 /hpf (0-5)
[2025-04-15 12:16] LABS: Glucose,Whole Blood 237 mg/dL (70-110)
--- NOTE | 2025-04-15 13:33 | P.HPIM ---
History of Present Illness H&P Date: 04/15/25 History of present illness; patient is a 65-year-old gentleman with past medical history significant for diabetes mellitus, systolic CHF, severe aortic stenosis, chronic kidney disease presented the ER because of abnormal labs. Patient was seen in the hospital a month back at which time he was diagnosed as having scrotal cellulitis and CHF exacerbation, at that time patient was discharged on antibiotics and Lasix 40 mg p.o. daily. Patient was all right and went to his PCP to have normal lab work done. Patient received a call from his PCP telling him that his labs were abnormal so he told him to come to the ER. Patient stated for the last couple of days he has been feeling that he was making less urine. Patient denied any chest pain. There was no complaint of shortness of breath. There was no complaint of orthopnea or PND. There was no complaint of shortness of breath . Patient denies any palpitation. There was no complaint of blood in the stools. Patient denies any altered bowel movements. Denies any nausea, vomiting abdominal pain. Because of abnormal labs, patient was sent to the ER Initial lab work done in the ER showed WBC 4.30, hemoglobin 9.2, platelet count 162, sodium 135, potassium 4, anion gap 14, BUN 118, creatinine 1.96, glucose 46 calcium 9.9, magnesium 2.1, bilirubin 0.7, AST 30, ALT 15, alk phos 79, total protein 6.4 albumin 3.9 Patient admitted to internal medicine service REVIEW OF SYSTEMS: CONSTITUTIONAL: No fever, no malaise, no fatigue. HEENT: No recent visual problems or hearing problems. Denied any sore throat. CARDIOVASCULAR: Mentioned above PULMONARY: Mentioned above GASTROINTESTINAL: No diarrhea, no nausea, no vomiting, no abdominal pain. NEUROLOGICAL: No headaches, no weakness, no numbness. HEMATOLOGICAL: Denies any bleeding or petechiae. GENITOURINARY: Denies any burning micturition, frequency, or urgency. MUSCULOSKELETAL/RHEUMATOLOGICAL: Denies any joint pain, swelling, or any muscle pain. ENDOCRINE: Denies any polyuria or polydipsia. The rest of the 14-point review of systems is negative. PHYSICAL EXAMINATION: GENERAL: The patient is alert and oriented x3, not in any acute distress. Well developed, well nourished. HEENT: Pupils are round and equally reacting to light. EOMI. No scleral icterus. No conjunctival pallor. Normocephalic, atraumatic. No pharyngeal erythema. No thyromegaly. CARDIOVASCULAR: S1 and S2 present. No murmurs, rubs, or gallops. PULMONARY: Chest is clear to auscultation, no wheezing or crackles. ABDOMEN: Soft, nontender, nondistended, normoactive bowel sounds. No palpable organomegaly. MUSCULOSKELETAL: No joint swelling or deformity. EXTREMITIES: No cyanosis, clubbing, or pedal edema. NEUROLOGICAL: Gross neurological examination did not reveal any focal deficits. SKIN: No rashes. Assessment and plan Hypoglycemia ABBI Anemia History of permanent atrial fibrillation diabetes mellitus, type I, normally wears an insulin pump History of CVA History of severe aortic stenosis with moderate aortic regurgitation Moderate pulmonary hypertension History of chronic kidney disease Obesity with a BMI of 31.6 Hypertension Monitor vital signs Monitor CBC Monitor CMP Continue telemetry monitoring Strict I's and O's Daily weights Avoid nephrotoxic agents Continue gentle hydration Ordered urine lites Ordered ultrasound kidneys Ordered anemia workup Ordered FOBT Labs and medication were reviewed.. Continue same treatment. Continue with symptomatic treatment. Resume home medication. Monitor labs and vitals. DVT and GI prophylaxis. Further recommendations as per clinical course of the patient Dictation was produced using [employer] dictation software. please excuse any grammatical, word or spelling errors. Past Medical History Past Medical History: Atrial Fibrillation, Heart Failure, CVA/TIA, Diabetes Mellitus, Hypertension Additional Past Medical History / Comment(s): Restless leg syndrome, A Fib on Xarelto History of Any Multi-Drug Resistant Organisms: None Reported Past Surgical History: No Surgical Hx Reported Smoking Status: Never smoker Past Alcohol Use History: Occasional Past Drug Use History: None Reported Medications and Allergies Home Medications Medication Instructions Recorded Confirmed Type Atorvastatin [Lipitor] 80 mg PO DAILY 03/09/25 04/15/25 History Dextroamphetamine/Amphetamine 10 mg PO DAILY 03/09/25 04/15/25 History [Adderall] FLUoxetine HCL [PROzac] 20 mg PO DAILY 03/09/25 04/15/25 History Fenofibrate [Lofibra] 160 mg PO DAILY 03/09/25 04/15/25 History Ferrous Sulfate [Iron (65 MG 325 mg PO DAILY 03/09/25 04/15/25 History Elemental)] Insulin Aspart (For Pump) [NovoLOG 0.01 unit SQ-PUMP CONTINUOUS 03/09/25 04/15/25 History (For Pump)] Losartan Potassium 100 mg PO DAILY 03/09/25 04/15/25 History Rivaroxaban [Xarelto] 20 mg PO HS 03/09/25 04/15/25 History Acetaminophen Tab [Tylenol] 650 mg PO Q6HR PRN tab 03/13/25 04/15/25 Rx Dapagliflozin Propanediol [Farxiga] 10 mg PO DAILY #30 tab 03/13/25 04/15/25 Rx Furosemide [Lasix] 40 mg PO DAILY #30 tablet 03/14/25 04/15/25 Rx Ergocalciferol [Vitamin D2 (1250 1,250 mcg PO SA 04/15/25 04/15/25 History Mcg = 89405 Iu)] Allergies Allergy/AdvReac Type Severity Reaction Status Date / Time lisinopril AdvReac Cough Verified 04/15/25 08:00 Physical Exam Vitals: Vital Signs Temp Pulse Pulse Resp BP BP Pulse Ox 04/15/25 08:22 85 109/61 04/15/25 07:04 97.5 F L 54 L 18 87/49 97 04/15/25 01:34 54 L 16 04/15/25 01:05 97.6 F 54 L 16 103/47 99 04/15/25 00:14 97.5 F L 54 L 16 105/60 100 04/14/25 23:18 55 L 16 109/44 100 04/14/25 20:23 97.4 F L 48 L 18 98/61 99 Intake and Output 04/14/25 04/15/25 04/15/25 22:59 06:59 14:59 Other: Voiding Method Toilet # Voids 1 1 # Bowel Movements 1 Weight 88.904 kg 88.904 kg Results CBC & Chem 7: 04/14/25 21:54 04/15/25 06:57 Labs: Abnormal Lab Results - Last 24 Hours (Table) 04/14/25 04/14/25 04/14/25 Range/Units 21:54 21:54 22:49 WBC 4.30 L (4.50-10.00) 10*3/uL RBC 3.52 L (4.40-5.60) 10*6/uL Hgb 9.2 L (13.0-17.0) g/dL Hct 28.3 L (39.6-50.0) % MCH 26.1 L (27.0-32.0) pg Lymphocytes # 0.81 L (0.90-5.00) 10*3/uL Sodium 135 L (137-145) mmol/L Chloride 97 L (98-107) mmol/L Carbon Dioxide (22-30) mmol/L BUN 118 H* (9-20) mg/dL Creatinine 1.96 H (0.66-1.25) mg/dL Glucose 46 L* (74-99) mg/dL POC Glucose (mg/dL) 48 L* (70-110) mg/dL 04/14/25 04/15/25 04/15/25 Range/Units 23:17 00:04 06:01 WBC (4.50-10.00) 10*3/uL RBC (4.40-5.60) 10*6/uL Hgb (13.0-17.0) g/dL Hct (39.6-50.0) % MCH (27.0-32.0) pg Lymphocytes # (0.90-5.00) 10*3/uL Sodium (137-145) mmol/L Chloride (98-107) mmol/L Carbon Dioxide (22-30) mmol/L BUN (9-20) mg/dL Creatinine (0.66-1.25) mg/dL Glucose (74-99) mg/dL POC Glucose (mg/dL) 159 H 165 H 122 H (70-110) mg/dL 04/15/25 Range/Units 06:57 WBC (4.50-10.00) 10*3/uL RBC (4.40-5.60) 10*6/uL Hgb (13.0-17.0) g/dL Hct (39.6-50.0) % MCH (27.0-32.0) pg Lymphocytes # (0.90-5.00) 10*3/uL Sodium 135 L (137-145) mmol/L Chloride (98-107) mmol/L Carbon Dioxide 20 L (22-30) mmol/L BUN 111 H* (9-20) mg/dL Creatinine 1.80 H (0.66-1.25) mg/dL Glucose 108 H (74-99) mg/dL POC Glucose (mg/dL) (70-110) mg/dL
[2025-04-15 16:12] LABS: Ferritin 195.0 ng/mL (22.0-322.0); Iron 39.0 UG/DL (65-175); Total Iron Binding Capacity 433.0 UG/DL (228-460); Vitamin B12 377.0 pg/mL (200.0-944.0)
[2025-04-15 17:16] LABS: Glucose,Whole Blood 295 mg/dL (70-110)
[2025-04-15 21:00] LABS: Glucose,Whole Blood 315 mg/dL (70-110)
[2025-04-15 21:07] LABS: Glucose,Whole Blood 310 mg/dL (70-110)
[2025-04-15] MEDS: RIVAROXABAN 20 MG TAB PO SCH (21:13)
[2025-04-16 06:10] LABS: Glucose,Whole Blood 146 mg/dL (70-110)
[2025-04-16 07:31] VITALS: BP 125/65; PULSE 78; RESP 16; TEMP 97.9
[2025-04-16] MEDS: FERROUS SULFATE 325 MG TAB PO SCH (07:59)
[2025-04-16] MEDS: ATORVASTATIN 80 MG TAB PO SCH (07:59)
[2025-04-16] MEDS: NON FORMULARY DRUG (Dextroamphetamine/Amphetamine [Adderall] 10 MG Tablet) PO SCH (08:01)
[2025-04-16 08:06] LABS: Basophils # (A) 0.04 X 10*3/uL (0.00-0.10); Basophils % (A) 0.7 %; Eosinophils # (A) 0.46 X 10*3/uL (0.04-0.35); Eosinophils % (A) 8.2 %; HCT 29.1 % (39.6-50.0); HGB 9.1 g/dL (13.0-17.0); Immature Grans, Automated 0.20 %; Lymphocytes # (A) 0.74 X 10*3/uL (0.90-5.00); Lymphocytes % (A) 13.2 %; MCH 25.3 pg (27.0-32.0); MCHC 31.3 g/dL (32.0-37.0); MCV 81.1 FL (80.0-97.0); Monocytes # (A) 0.59 X 10*3/uL (0.20-1.00); Monocytes % (A) 10.6 %; NRBC Per 100 WBC 0 X 10*3/uL (0.00-0.01); Neutrophils # (A) 3.75 X 10*3/uL (1.80-7.70); Neutrophils % (A) 67.1 %; Platelet Count 166 X 10*3/uL (140-440); RBC 3.59 X 10*6/uL (4.40-5.60); RDW 17.1 % (11.5-14.5); WBC 5.59 X 10*3/uL (4.50-10.00)
[2025-04-16 08:11] LABS: ALT 17 U/L (10-49); AST 28 U/L (14-35); Albumin 3.6 g/dL (3.8-4.9); Albumin/Globulin Ratio 1.89 Ratio (1.60-3.17); Alkaline Phosphatase 55 U/L (41-126); Anion Gap 14.90 mmol/L (4.00-12.00); BUN/Creat Ratio 50.50 Ratio (12.00-20.00); Blood Urea Nitrogen 80.8 mg/dL (9.0-27.0); Calcium 9.1 mg/dL (8.7-10.3); Carbon Dioxide 21.1 mmol/L (21.6-31.8); Chloride 104 mmol/L (96-109); Globulin 1.9 g/dL (1.6-3.3); Glucose 147 mg/dL (70-110); Magnesium 1.9 mg/dL (1.5-2.4); Potassium 3.9 mmol/L (3.5-5.5); Sodium 140 mmol/L (135-145); Total Protein 5.5 g/dL (6.2-8.2)
--- NOTE | 2025-04-16 11:07 | P.PN ---
Subjective Patient is seen in follow-up for acute kidney injury. Renal function improving. BUN trending down. Receiving IV fluids. Admits to good urine output. Wants to go home. Vital signs are stable. General: No acute distress. HEENT: Head exam is unremarkable. LUNGS: No audible rhonchi or wheezes. HEART: Rate and Rhythm are regular. ABDOMEN: Nontender. EXTREMITITES: No edema. Objective - Vital Signs Vital signs: Vital Signs Temp 97.9 F 04/16/25 07:30 Pulse 78 04/16/25 07:30 Resp 16 04/16/25 07:30 BP 125/65 04/16/25 07:30 Pulse Ox 95 04/16/25 07:30 FiO2 Intake & Output 04/15/25 04/16/25 04/16/25 18:59 06:59 18:59 Output Total 300 Balance -300 Output: Urine 300 Other: Voiding Method Toilet Urinal # Voids 1 3 # Bowel Movements 1 1 - Labs CBC & Chem 7: 04/16/25 06:04 04/16/25 06:04 Labs: Abnormal Lab Results - Last 24 Hours (Table) 04/15/25 04/15/25 04/15/25 Range/Units 10:08 10:08 11:02 RBC (4.40-5.60) X 10*6/uL Hgb (13.0-17.0) g/dL Hct (39.6-50.0) % MCH (27.0-32.0) pg MCHC (32.0-37.0) g/dL RDW (11.5-14.5) % Lymphocytes # (0.90-5.00) X 10*3/uL Eosinophils # (0.04-0.35) X 10*3/uL Carbon Dioxide (21.6-31.8) mmol/L Anion Gap (4.00-12.00) mmol/L BUN (9.0-27.0) mg/dL Creatinine (0.6-1.5) mg/dL Est GFR (CKD-EPI) (>=60) BUN/Creatinine Ratio (12.00-20.00) Ratio Glucose (70-110) mg/dL POC Glucose (mg/dL) (70-110) mg/dL Osmolality 323 H (275-295) mOsm/kg Iron 39 L 38 L (65-175) UG/DL % Saturation 9.01 L (15.00-50.00) Total Protein (6.2-8.2) g/dL Albumin (3.8-4.9) g/dL Urine Glucose (UA) 3+ H (Negative) Urine Blood Trace H (Negative) Ur Random Creatinine (39.0-259.0) mg/dL 04/15/25 04/15/25 04/15/25 Range/Units 11:02 12:14 17:10 RBC (4.40-5.60) X 10*6/uL Hgb (13.0-17.0) g/dL Hct (39.6-50.0) % MCH (27.0-32.0) pg MCHC (32.0-37.0) g/dL RDW (11.5-14.5) % Lymphocytes # (0.90-5.00) X 10*3/uL Eosinophils # (0.04-0.35) X 10*3/uL Carbon Dioxide (21.6-31.8) mmol/L Anion Gap (4.00-12.00) mmol/L BUN (9.0-27.0) mg/dL Creatinine (0.6-1.5) mg/dL Est GFR (CKD-EPI) (>=60) BUN/Creatinine Ratio (12.00-20.00) Ratio Glucose (70-110) mg/dL POC Glucose (mg/dL) 237 H 295 H (70-110) mg/dL Osmolality (275-295) mOsm/kg Iron (65-175) UG/DL % Saturation (15.00-50.00) Total Protein (6.2-8.2) g/dL Albumin (3.8-4.9) g/dL Urine Glucose (UA) (Negative) Urine Blood (Negative) Ur Random Creatinine 35.4 L (39.0-259.0) mg/dL 04/15/25 04/15/25 04/16/25 Range/Units 20:58 21:05 06:04 RBC (4.40-5.60) X 10*6/uL Hgb (13.0-17.0) g/dL Hct (39.6-50.0) % MCH (27.0-32.0) pg MCHC (32.0-37.0) g/dL RDW (11.5-14.5) % Lymphocytes # (0.90-5.00) X 10*3/uL Eosinophils # (0.04-0.35) X 10*3/uL Carbon Dioxide 21.1 L (21.6-31.8) mmol/L Anion Gap 14.90 H (4.00-12.00) mmol/L BUN 80.8 H (9.0-27.0) mg/dL Creatinine 1.6 H (0.6-1.5) mg/dL Est GFR (CKD-EPI) 47 L (>=60) BUN/Creatinine Ratio 50.50 H (12.00-20.00) Ratio Glucose 147 H (70-110) mg/dL POC Glucose (mg/dL) 315 H 310 H (70-110) mg/dL Osmolality (275-295) mOsm/kg Iron (65-175) UG/DL % Saturation (15.00-50.00) Total Protein 5.5 L (6.2-8.2) g/dL Albumin 3.6 L (3.8-4.9) g/dL Urine Glucose (UA) (Negative) Urine Blood (Negative) Ur Random Creatinine (39.0-259.0) mg/dL 04/16/25 04/16/25 Range/Units 06:04 06:06 RBC 3.59 L (4.40-5.60) X 10*6/uL Hgb 9.1 L (13.0-17.0) g/dL Hct 29.1 L (39.6-50.0) % MCH 25.3 L (27.0-32.0) pg MCHC 31.3 L (32.0-37.0) g/dL RDW 17.1 H (11.5-14.5) % Lymphocytes # 0.74 L (0.90-5.00) X 10*3/uL Eosinophils # 0.46 H (0.04-0.35) X 10*3/uL Carbon Dioxide (21.6-31.8) mmol/L Anion Gap (4.00-12.00) mmol/L BUN (9.0-27.0) mg/dL Creatinine (0.6-1.5) mg/dL Est GFR (CKD-EPI) (>=60) BUN/Creatinine Ratio (12.00-20.00) Ratio Glucose (70-110) mg/dL POC Glucose (mg/dL) 146 H (70-110) mg/dL Osmolality (275-295) mOsm/kg Iron (65-175) UG/DL % Saturation (15.00-50.00) Total Protein (6.2-8.2) g/dL Albumin (3.8-4.9) g/dL Urine Glucose (UA) (Negative) Urine Blood (Negative) Ur Random Creatinine (39.0-259.0) mg/dL Assessment and Plan Plan: Assessment: 1. Acute kidney injury secondary to ATN secondary to hypovolemia further worsened with the use of diuretic, losartan and SGLT2 inhibitor. Creatinine 1.96 on admission and is 1.6 today. BUN trending down. Baseline creatinine near 1 from March 2025. Kidney ultrasound from March 2025 showed no evidence of hydronephrosis. No proteinuria on UA. 2. Metabolic acidosis secondary to acute kidney injury and IV fluids. Improved. 3. Anemia. Iron deficiency noted. 4. Diabetes mellitus. 5. Chronic systolic CHF ejection fraction of 45 to 50% with moderate pulmonary hypertension, severe aortic stenosis, moderate aortic regurgitation and mild to moderate mitral regurgitation. Plan: Maintain IV fluids. Continue to hold diuretics and Farxiga. Continue to hold losartan. Avoid nephrotoxins. Continue to monitor renal function and urine output. IV iron x 1 dose today. Advised patient to monitor his weight closely at home and to notify physician if develops edema or gains 3 pounds in 1 week duration. Follow-up with patient 1 week postdischarge. Repeat BMP and magnesium level 2 to 3 days postdischarge.
[2025-04-16] MEDS: SODIUM FERRIC GLUCONAT-SUCROSE 125 MG in SODIUM CHLORIDE 0.9% 100 ML IVPB ONE (11:34)
--- NOTE | 2025-04-16 12:32 | P.DS ---
Providers Date of admission: 04/14/25 23:59 Expected date of discharge: 04/16/25 Attending physician: Yonis Salazar MD Consults: 04/14/25 23:59 Consult Physician Routine Consulting Provider: Gustavo León Consult Reason/Comments: elevated BUN, Cr Do you want consulting provider notified?: Yes, Notify in am Primary care physician: Garret Cheek Hospital Course: Discharge diagnoses; Hypoglycemia ABBI Anemia History of permanent atrial fibrillation diabetes mellitus, type I, normally wears an insulin pump History of CVA History of severe aortic stenosis with moderate aortic regurgitation Moderate pulmonary hypertension History of chronic kidney disease Obesity with a BMI of 31.6 Hypertension Hospital course; patient is a 65-year-old gentleman with past medical history significant for diabetes mellitus, systolic CHF, severe aortic stenosis, chronic kidney disease presented the ER because of abnormal labs. Patient was seen in the hospital a month back at which time he was diagnosed as having scrotal cellulitis and CHF exacerbation, at that time patient was discharged on antibiotics and Lasix 40 mg p.o. daily. Patient was all right and went to his PCP to have normal lab work done. Patient received a call from his PCP telling him that his labs were abnormal so he told him to come to the ER. Patient stated for the last couple of days he has been feeling that he was making less urine. Patient denied any chest pain. There was no complaint of shortness of breath. There was no complaint of orthopnea or PND. There was no complaint of shortness of breath . Patient denies any palpitation. There was no complaint of blood in the stools. Patient denies any altered bowel movements. Denies any nausea, vomiting abdominal pain. Because of abnormal labs, patient was sent to the ER Initial lab work done in the ER showed WBC 4.30, hemoglobin 9.2, platelet count 162, sodium 135, potassium 4, anion gap 14, BUN 118, creatinine 1.96, glucose 46 calcium 9.9, magnesium 2.1, bilirubin 0.7, AST 30, ALT 15, alk phos 79, total protein 6.4 albumin 3.9 Patient admitted to internal medicine service 04/16. Patient seen and examined. Patient was evaluated by nephrology, at this time patient kidneys have improved, nephrology recommended discontinuing Lasix and losartan at [place]. Patient to have repeat blood work in 3 days. Outpatient follow-up with PCP and nephrology PHYSICAL EXAMINATION: GENERAL: The patient is alert and oriented x3, not in any acute distress. Well developed, well nourished. HEENT: Pupils are round and equally reacting to light. EOMI. No scleral icterus. No conjunctival pallor. Normocephalic, atraumatic. No pharyngeal erythema. No thyromegaly. CARDIOVASCULAR: S1 and S2 present. No murmurs, rubs, or gallops. PULMONARY: Chest is clear to auscultation, no wheezing or crackles. ABDOMEN: Soft, nontender, nondistended, normoactive bowel sounds. No palpable organomegaly. MUSCULOSKELETAL: No joint swelling or deformity. EXTREMITIES: No cyanosis, clubbing, or pedal edema. NEUROLOGICAL: Gross neurological examination did not reveal any focal deficits. SKIN: No rashes. Dictation was produced using [employer] dictation software. please excuse any grammatical, word or spelling errors. Patient Condition at Discharge: Stable Plan - Discharge Summary Discharge Rx Participant: Yes New Discharge Prescriptions: Continue Atorvastatin [Lipitor] 80 mg PO DAILY Rivaroxaban [Xarelto] 20 mg PO HS FLUoxetine HCL [PROzac] 20 mg PO DAILY Ferrous Sulfate [Iron (65 MG Elemental)] 325 mg PO DAILY Ergocalciferol [Vitamin D2 (1250 Mcg = 82638 Iu)] 1,250 mcg PO SA Fenofibrate [Lofibra] 160 mg PO DAILY Insulin Aspart (For Pump) [NovoLOG (For Pump)] 0.01 unit SQ-PUMP CONTINUOUS Dextroamphetamine/Amphetamine [Adderall] 10 mg PO DAILY Dapagliflozin Propanediol [Farxiga] 10 mg PO DAILY #30 tab Discontinued Losartan Potassium 100 mg PO DAILY Acetaminophen Tab [Tylenol] 650 mg PO Q6HR PRN tab PRN Reason: Fever And/ Or Pain Furosemide [Lasix] 40 mg PO DAILY #30 tablet Discharge Medication List Atorvastatin [Lipitor] 80 mg PO DAILY 03/09/25 [History] Dextroamphetamine/Amphetamine [Adderall] 10 mg PO DAILY 03/09/25 [History] FLUoxetine HCL [PROzac] 20 mg PO DAILY 03/09/25 [History] Fenofibrate [Lofibra] 160 mg PO DAILY 03/09/25 [History] Ferrous Sulfate [Iron (65 MG Elemental)] 325 mg PO DAILY 03/09/25 [History] Insulin Aspart (For Pump) [NovoLOG (For Pump)] 0.01 unit SQ-PUMP CONTINUOUS 03/09/25 [History] Rivaroxaban [Xarelto] 20 mg PO HS 03/09/25 [History] Dapagliflozin Propanediol [Farxiga] 10 mg PO DAILY #30 tab 03/13/25 [Rx] Ergocalciferol [Vitamin D2 (1250 Mcg = 35735 Iu)] 1,250 mcg PO SA 04/15/25 [History] Follow up Appointment(s)/Referral(s): Deborah Garcia MD [STAFF PHYSICIAN] - 1 Week Garret Cheek MD [Primary Care Provider] - 1-2 days Activity/Diet/Wound Care/Special Instructions: Patient Lasix and losartan were discontinued per nephrology, repeat CMP in 3 days
[2025-04-16 12:54] LABS: Glucose,Whole Blood 297 mg/dL (70-110)
--- NOTE | 2025-04-17 23:03 | CDI ---
Documentation Clarification Form Date: 04/17/2025 10:48:30 PM From: Anjali Spann Phone: Admit Date: 04/14/2025 11:59:00 PM Patient Name: Tom Reed Visit Number: [id number] Discharge Date: 04/16/2025 02:35:00 PM ATTENTION: The Clinical Documentation Specialists (CDI) and [facility] Coding Staff appreciate your assistance in clarifying documentation. Please respond to the clarification below the line at the bottom and electronically sign. The CDI & [facility] Coding staff will review the response and follow-up if needed. Please note: Queries are made part of the Legal Health Record. If you have any questions, please contact the author of this message via ITS. Doctor/Provider: Yonis Salazar History ofchronic kidney disease is documented throughtout the Progress Notes. Additional clarification regarding the stage of CKD is requested. History/Risk Factors: 65yo M, ATN, DMI w hypoglycemia w insulin pump, CSHF, ABBI, anemia, perm A Fib, hypovolemia, Hx CVA, /AR, MR, PHTN, obesity, HTN, metabolic acidosis Baseline creatinine near 1 from March 2025 Clinical Indicators: BUN: 04/14 118 04/15 111 04/16 80.8 CR: 04/14 1.96 04/15 1.8 04/16 1.6 GFR: 04/14 35/40 04/15 38/44 04/16 -/- Treatment: BUN trending down. Baseline creatinine near 1 from March 2025.Kidney ultrasoundfrom March 2025 showed no evidence of hydronephrosis. Noproteinuriaon UA. Please clarify the stage of the CKD, if known: [ ] CKD Stage 3a [x ] CKD Stage 3b [ ] Other, please specify [ ] Unable to determine Reference: [employer] Stage 1 eGFR = 90 and kidney damage for =3 months Stage 2 eGFR 60-89 and kidney damage for =3 months Stage 3a eGFR 45-59 and kidney damage for =3 months Stage 3b eGFR 30-44 and kidney damage for =3 months Stage 4 eGFR 15-29 r and kidney damage for =3 months Stage 5 eGFR <15 and kidney damage for =, months (Template last revised: October 2023) MTDD
[2025-04-18] MEDS ORDERED: ERGOCALCIFEROL 1,250 MCG (50,000 IU) CAPSULE PO SCH (09:00)
== END 2025-04-16 14:35 | disposition home or self-care (01) | DRG 683 ==
LOC: EC 20:15 → 4SSUR 23:59
PROVIDERS: ADMIT Internal Medicine; ATTEND Internal Medicine
DX: N17.0 Acute kidney failure with tubular necrosis (principal); E87.20 Acidosis, unspecified; I48.21 Permanent atrial fibrillation; D63.1 Anemia in chronic kidney disease; I27.22 Pulmonary hypertension due to left heart disease; E86.0 Dehydration; E10.22 Type 1 diabetes mellitus with diabetic chronic kidney disease; I13.0 Hypertensive heart and chronic kidney disease with heart failure and stage 1 through stage 4 chronic kidney disease, or unspecified chronic kidney disease; N18.32 Chronic kidney disease, stage 3b; I08.0 Rheumatic disorders of both mitral and aortic valves; E66.9 Obesity, unspecified; I50.22 Chronic systolic (congestive) heart failure; E10.649 Type 1 diabetes mellitus with hypoglycemia without coma; Z79.4 Long term (current) use of insulin; E61.1 Iron deficiency; E86.1 Hypovolemia; T50.2X5A Adverse effect of carbonic-anhydrase inhibitors, benzothiadiazides and other diuretics, initial encounter; T46.5X5A Adverse effect of other antihypertensive drugs, initial encounter; T38.3X5A Adverse effect of insulin and oral hypoglycemic [antidiabetic] drugs, initial encounter; Z68.31 Body mass index [BMI] 31.0-31.9, adult; Z86.73 Personal history of transient ischemic attack (TIA), and cerebral infarction without residual deficits; Z79.84 Long term (current) use of oral hypoglycemic drugs; Z79.01 Long term (current) use of anticoagulants; Z96.41 Presence of insulin pump (external) (internal); Z79.899 Other long term (current) drug therapy
CPT/HCPCS: 36415; 76770; 80048; 80053; 81001; 82550; 82570; 82607; 82728; 82747; 83540; 83550; 83735; 83930; 83935; 84300; 85025; 87205; 93005; 96361; 96374; 99285